=== PATIENT | male | born 1975 | race Caucasian/White ===

== ENCOUNTER 2016-06-28 23:18 | Emergency (ER) | payer OTHER ==
[~2016-06-28] VITALS: Ht 182.9 cm; Wt 123.0 kg
[~2016-06-28 23:18] MED LIST: AVAPRO300 MG PO; PREVACID30 MG PO
[2016-06-29 00:28] LABS: HEMATOCRIT 42.2 % (38.0-50.0); MCH 28.8 PG (29.0-34.0); MCHC 32.9 G/DL (30.0-36.0); MCV 87.6 FL (86-99); MEAN PLAT.VOLUME 8.4 uM^3 (9.0-12.4); PLATELET COUNT 365 K/uL (156-360); RBC DIS.WIDTH-CV 11.5 % (11.8-14.6); RBC DIS.WIDTH-SD 37.3 % (39-53); RED BLOOD COUNT 4.82 M/uL (4.00-5.50); WHITE BLOOD COUNT 10.8 K/uL (4.1-10.2)
[2016-06-29 00:36] LABS: CHLORIDE 102 mEq/L (99-109); POTASSIUM 3.8 mEq/L (3.7-5.4); SODIUM 138 mEq/L (136-147)
[2016-06-29 00:38] LABS: GLUCOSE 100 mg/dL (70-99)
[2016-06-29 00:40] LABS: ANION GAP 9 MEQ/L (2-14)
[2016-06-29 00:42] LABS: GFR ESTIMATE (CALCULATED) > 59 mL/min/
[2016-06-29 00:43] LABS: UREA NITROGEN (BUN) 13 mg/dL (9-23)
[2016-06-29 00:48] LABS: TROP-I INTERPRETATION NEGATIVE; TROPONIN-I < 0.01 ng/mL (0.0-0.30)
[2016-06-29 01:45] LABS: INFLUENZA A VIRAL ANTIGEN NEGATIVE; INFLUENZA B VIRAL ANTIGEN NEGATIVE
[2016-06-29] MEDS ORDERED: HYCODAN SYRUP480 ML PO (02:00)
[2016-06-29] MEDS ORDERED: PROAIR HFA8.5 GM IH (02:00)
[2016-06-29 02:16] VITALS: BP 123/82
== END 2016-06-29 02:21 | disposition home or self-care (01) ==
LOC: EME 23:18
PROVIDERS: Emergency Medicine
DX: J06.9 Acute upper respiratory infection, unspecified (principal); J30.9 Allergic rhinitis, unspecified; R91.8 Other nonspecific abnormal finding of lung field; I10 Essential (primary) hypertension; K21.9 Gastro-esophageal reflux disease without esophagitis
CPT/HCPCS: 71020; 80048; 84484; 85027; 87502; 93005; 94640; 99281; 99284

== ENCOUNTER → 2016-07-06 | Outpatient (CLI) | payer OTHER ==
[~2016-07-06] VITALS: Ht 182.9 cm; Wt 119.5 kg
[~2016-07-06] MED LIST changes: +HYCODAN SYRUP480 ML PO; +PROAIR HFA8.5 GM IH
[2016-07-06 10:25] LABS: INTER. NORMALIZED RATIO 1.1; PROTHROMBIN TIME 11.5 (9.2-11.2); PTT 32.6 (25-32)
[2016-07-08 10:12] LABS: Flow Clinical Information NOT PROVIDED (()); Flow Number of Markers 22 (()); Flow Spec Viability 58 % (())
== END | disposition home or self-care (01) ==
LOC: OPR 08:44 → EDSTATUS 09:00 → RAD 10:00 → OPR 07-14 09:00
PROVIDERS: Family Medicine
PROC: 0WBC3ZX Excision of Mediastinum, Percutaneous Approach, Diagnostic (ICD-10-PCS; principal; 2016-07-06)
DX: C38.1 Malignant neoplasm of anterior mediastinum (principal); R07.9 Chest pain, unspecified; R91.8 Other nonspecific abnormal finding of lung field; R11.0 Nausea
CPT/HCPCS: 71010; 71250; 77012; 85610; 85730; 88184 90; 88185 90; 88189 90; 88305; 88341 TC; 88342 TC; J2405; J3010

== ENCOUNTER → 2016-07-15 | Outpatient (CLI) | payer OTHER ==
[~2016-07-15] MED LIST changes: +ADVIL200 MG PO
== END | disposition home or self-care (01) ==
LOC: RES 12:30
DX: J98.59 Other diseases of mediastinum, not elsewhere classified (principal)
CPT/HCPCS: 94060; 94726; 94729

== ENCOUNTER 2016-07-17 10:58 | Day surgery (SDC) | payer OTHER ==
[~2016-07-17] VITALS: Ht 182.9 cm; Wt 119.0 kg
== END 2016-07-17 13:32 | disposition home or self-care (01) ==
LOC: CATH 10:58
DX: I87.8 Other specified disorders of veins (principal); C78.1 Secondary malignant neoplasm of mediastinum; I10 Essential (primary) hypertension; Z82.49 Family history of ischemic heart disease and other diseases of the circulatory system; Z83.3 Family history of diabetes mellitus
CPT/HCPCS: C1751; C1894; J0690; J1644; J2250; J3010; S0020

== ENCOUNTER 2016-07-22 10:54 | Inpatient (IN) | payer OTHER ==
[~2016-07-22] VITALS: Ht 182.9 cm; Wt 118.8 kg
[2016-07-23 09:01] VITALS: BP 137/82
[2016-07-23] MEDS ORDERED: OXAYDO5 MG PO (09:28)
[2016-07-23] MEDS ORDERED: DERMACINRX EMP1 EACH TP (09:30)
[2016-07-23] MEDS ORDERED: SENNA LAXATIVE8.6 MG PO (09:32)
[2016-07-23] MEDS ORDERED: COMPAZINE10 MG PO (09:33)
[2016-07-23] MEDS ORDERED: ZOFRAN8 MG PO ×2 (09:34→09:35)
[2016-07-23 09:39] LABS: HEMATOCRIT 34.3 % (38.0-50.0); MCH 27.2 PG (29.0-34.0); MCHC 32.1 G/DL (30.0-36.0); MCV 84.9 FL (86-99); MEAN PLAT.VOLUME 8.8 uM^3 (9.0-12.4); PLATELET COUNT 347 K/uL (156-360); RBC DIS.WIDTH-CV 12.7 % (11.8-14.6); RBC DIS.WIDTH-SD 39.4 % (39-53); RED BLOOD COUNT 4.04 M/uL (4.00-5.50); WHITE BLOOD COUNT 10.6 K/uL (4.1-10.2)
[2016-07-23 09:45] LABS: ALKALINE PHOSPHATASE 170 IU/L (3-129); ANION GAP 12 MEQ/L (2-14); CHLORIDE 103 MEQ/L (99-109); GFR ESTIMATE (CALCULATED) > 59 mL/min/; GLUCOSE 95 mg/dL (70-99); POTASSIUM 3.7 MEQ/L (3.7-5.4); SAMPLE HEMOLYSIS CHECK 0; SAMPLE ICTERIC CHECK 0; SAMPLE LIPEMIA CHECK 0; SODIUM 140 MEQ/L (136-147); TOTAL BILIRUBIN 0.9 MG/DL (0.0-1.0); UREA NITROGEN (BUN) 16 mg/dL (9-23)
[2016-07-23 12:01] VITALS: BP 129/79
[2016-07-23 16:38] VITALS: BP 133/97
[2016-07-24 00:58] VITALS: BP 131/76
[2016-07-24 04:17] VITALS: BP 132/71
[2016-07-24 07:19] LABS: HEMATOCRIT 31.8 % (38.0-50.0); MCH 27.6 PG (29.0-34.0); MCHC 32.4 G/DL (30.0-36.0); MCV 85.3 FL (86-99); MEAN PLAT.VOLUME 8.8 uM^3 (9.0-12.4); PLATELET COUNT 337 K/uL (156-360); RBC DIS.WIDTH-CV 12.8 % (11.8-14.6); RED BLOOD COUNT 3.73 M/uL (4.00-5.50); WHITE BLOOD COUNT 13.9 K/uL (4.1-10.2)
[2016-07-24 07:27] LABS: ALKALINE PHOSPHATASE 168 IU/L (3-129); ANION GAP 11 MEQ/L (2-14); CHLORIDE 103 MEQ/L (99-109); GFR ESTIMATE (CALCULATED) > 59 mL/min/; GLUCOSE 116 mg/dL (70-99); POTASSIUM 4.3 MEQ/L (3.7-5.4); SAMPLE HEMOLYSIS CHECK 0; SAMPLE ICTERIC CHECK 0; SAMPLE LIPEMIA CHECK 0; SODIUM 138 MEQ/L (136-147); TOTAL BILIRUBIN 0.8 MG/DL (0.0-1.0); UREA NITROGEN (BUN) 14 mg/dL (9-23); URIC ACID 4.2 mg/dL (3.1-9.2)
[2016-07-24 08:23] VITALS: BP 120/75
[2016-07-24 15:37] VITALS: BP 131/74
[2016-07-24 23:03] VITALS: BP 133/74
[2016-07-25 06:08] LABS: EOSINOPHIL (%) 0.2 % (0-5); HEMATOCRIT 30.9 % (38.0-50.0); IMMATURE GRANULOCYTE (%) 0.4 % (0.0-0.7); IMMATURE GRANULOCYTE COUNT 0.1 K/uL; INSTRUMENT ABS NEUTROPHIL CT 12.4 K/uL; LYMPHOCYTE COUNT 1.1 K/uL (1.0-2.8); MCH 27.3 PG (29.0-34.0); MCHC 31.7 G/DL (30.0-36.0); MCV 86.1 FL (86-99); MONOCYTE (%) 6.3 % (3-12); MONOCYTE COUNT 0.9 K/uL (0-0.8); NEUTROPHIL (%) 85.4 % (45-76); NEUTROPHIL COUNT 12.4 K/uL (1.8-6.4); PLATELET COUNT 324 K/uL (156-360); RBC DIS.WIDTH-CV 12.7 % (11.8-14.6); RBC DIS.WIDTH-SD 39.9 % (39-53); RED BLOOD COUNT 3.59 M/uL (4.00-5.50); WHITE BLOOD COUNT 14.5 K/uL (4.1-10.2)
[2016-07-25 06:29] LABS: ALKALINE PHOSPHATASE 133 IU/L (3-129); ANION GAP 9 MEQ/L (2-14); CHLORIDE 106 MEQ/L (99-109); GFR ESTIMATE (CALCULATED) > 59 mL/min/; GLUCOSE 95 mg/dL (70-99); MAGNESIUM 2.2 mg/dl (1.3-2.7); POTASSIUM 4.4 MEQ/L (3.7-5.4); SAMPLE HEMOLYSIS CHECK 0; SAMPLE ICTERIC CHECK 0; SAMPLE LIPEMIA CHECK 0; SODIUM 139 MEQ/L (136-147); TOTAL BILIRUBIN 0.7 MG/DL (0.0-1.0); UREA NITROGEN (BUN) 17 mg/dL (9-23)
[2016-07-25 06:36] VITALS: BP 133/78
[2016-07-25 15:36] VITALS: BP 128/74
[2016-07-25 22:23] VITALS: BP 143/83
[2016-07-26 06:14] LABS: EOSINOPHIL (%) 1.5 % (0-5); EOSINOPHIL COUNT 0.2 K/uL (0-0.3); IMMATURE GRANULOCYTE (%) 0.5 % (0.0-0.7); IMMATURE GRANULOCYTE COUNT 0.1 K/uL; INSTRUMENT ABS NEUTROPHIL CT 7.9 K/uL; LYMPHOCYTE COUNT 1.8 K/uL (1.0-2.8); MCH 27.1 PG (29.0-34.0); MCHC 31.9 G/DL (30.0-36.0); MCV 84.9 FL (86-99); MEAN PLAT.VOLUME 8.8 uM^3 (9.0-12.4); MONOCYTE (%) 2.3 % (3-12); MONOCYTE COUNT 0.2 K/uL (0-0.8); NEUTROPHIL (%) 77.7 % (45-76); NEUTROPHIL COUNT 7.9 K/uL (1.8-6.4); PLATELET COUNT 327 K/uL (156-360); RBC DIS.WIDTH-CV 12.8 % (11.8-14.6); RBC DIS.WIDTH-SD 39.6 % (39-53); RED BLOOD COUNT 3.77 M/uL (4.00-5.50); WHITE BLOOD COUNT 10.2 K/uL (4.1-10.2)
[2016-07-26 06:43] LABS: ANION GAP 8 MEQ/L (2-14); CHLORIDE 106 MEQ/L (99-109); GFR ESTIMATE (CALCULATED) > 59 mL/min/; GLUCOSE 95 mg/dL (70-99); MAGNESIUM 1.9 mg/dl (1.3-2.7); POTASSIUM 4.1 MEQ/L (3.7-5.4); SAMPLE HEMOLYSIS CHECK 0; SAMPLE ICTERIC CHECK 0; SAMPLE LIPEMIA CHECK 0; SODIUM 138 MEQ/L (136-147); UREA NITROGEN (BUN) 17 mg/dL (9-23)
[2016-07-26 09:26] VITALS: BP 133/76
[2016-07-26 10:04] LABS: ADD MIUA? NO; BILIRUBIN NEGATIVE; BLOOD NEGATIVE; COLOR STRAW ((YELLOW)); GLUCOSE (STRIP) 50; KETONES 20; LEUKOCYTES NEGATIVE; NITRITE NEGATIVE; PROTEIN (STRIP) NEGATIVE; UROBILINOGEN 0.2 MG/DL (0.2-1.0)
[2016-07-26 17:07] VITALS: BP 127/70
[2016-07-26 22:40] VITALS: BP 127/83
[2016-07-27 07:26] VITALS: BP 136/84
[2016-07-27 15:00] VITALS: BP 108/61
[2016-07-27 23:43] VITALS: BP 122/75
[2016-07-28 06:25] LABS: EOSINOPHIL (%) 2.2 % (0-5); EOSINOPHIL COUNT 0.2 K/uL (0-0.3); HEMATOCRIT 32.8 % (38.0-50.0); IMMATURE GRANULOCYTE (%) 0.7 % (0.0-0.7); IMMATURE GRANULOCYTE COUNT 0.1 K/uL; INSTRUMENT ABS NEUTROPHIL CT 8.5 K/uL; LYMPHOCYTE COUNT 1.4 K/uL (1.0-2.8); MCH 26.8 PG (29.0-34.0); MCV 83.7 FL (86-99); MONOCYTE (%) 0.8 % (3-12); MONOCYTE COUNT 0.1 K/uL (0-0.8); NEUTROPHIL (%) 82.9 % (45-76); NEUTROPHIL COUNT 8.5 K/uL (1.8-6.4); PLATELET COUNT 403 K/uL (156-360); RBC DIS.WIDTH-CV 13.1 % (11.8-14.6); RBC DIS.WIDTH-SD 39.7 % (39-53); RED BLOOD COUNT 3.92 M/uL (4.00-5.50); WHITE BLOOD COUNT 10.3 K/uL (4.1-10.2)
[2016-07-28 07:00] VITALS: BP 132/80
[2016-07-28 07:11] LABS: ANION GAP 11 MEQ/L (2-14); CHLORIDE 100 MEQ/L (99-109); GFR ESTIMATE (CALCULATED) > 59 mL/min/; GLUCOSE 83 mg/dL (70-99); POTASSIUM 4.2 MEQ/L (3.7-5.4); SAMPLE HEMOLYSIS CHECK 0; SAMPLE ICTERIC CHECK 0; SAMPLE LIPEMIA CHECK 0; SODIUM 136 MEQ/L (136-147); UREA NITROGEN (BUN) 16 mg/dL (9-23)
[2016-07-28 15:05] VITALS: BP 119/77
== END 2016-07-28 20:05 | disposition home or self-care (01) | DRG 847 ==
LOC: 5EAST 10:54
PROVIDERS: Hospitalist; Internal Medicine
DX: Z51.11 Encounter for antineoplastic chemotherapy (principal); C78.01 Secondary malignant neoplasm of right lung; D59.9 Acquired hemolytic anemia, unspecified; D61.9 Aplastic anemia, unspecified; C62.90 Malignant neoplasm of unspecified testis, unspecified whether descended or undescended; I10 Essential (primary) hypertension; K21.9 Gastro-esophageal reflux disease without esophagitis; G89.3 Neoplasm related pain (acute) (chronic); K59.00 Constipation, unspecified; D72.829 Elevated white blood cell count, unspecified
CPT/HCPCS: 71010; 80048; 80053; 81003; 82105 90; 83615; 83735; 84100; 84550; 84702 90; 85025; 85027; J1100; J1453; J1626; J1650; J2405; J2765; J7030; J7040; J7050; J9060; J9181; J9208; J9209

== ENCOUNTER 2016-08-17 08:22 | Inpatient (IN) | payer OTHER ==
[~2016-08-17] VITALS: Ht 182.9 cm; Wt 113.6 kg
[~2016-08-17 08:22] MED LIST changes: +COMPAZINE10 MG PO; +DERMACINRX EMP1 EACH TP; +OXAYDO5 MG PO; +SENNA LAXATIVE8.6 MG PO; +ZOFRAN8 MG PO
[2016-08-17 09:31] LABS: HEMATOCRIT 36.5 % (38.0-50.0); MCH 26.7 PG (29.0-34.0); MCHC 31.5 G/DL (30.0-36.0); MCV 84.9 FL (86-99); PLATELET COUNT 485 K/uL (156-360); RBC DIS.WIDTH-CV 16.1 % (11.8-14.6); RBC DIS.WIDTH-SD 43.8 % (39-53); WHITE BLOOD COUNT 11.1 K/uL (4.1-10.2)
[2016-08-17 09:46] LABS: CHLORIDE 104 mEq/L (99-109); POTASSIUM 4.6 mEq/L (3.7-5.4); SODIUM 139 mEq/L (136-147)
[2016-08-17 09:48] LABS: GLUCOSE 100 mg/dL (70-99)
[2016-08-17 09:50] LABS: ANION GAP 11 MEQ/L (2-14); TOTAL BILIRUBIN 0.2 mg/dL (0.0-1.0)
[2016-08-17 09:52] LABS: ALKALINE PHOSPHATASE 110 IU/L (3-129); GFR ESTIMATE (CALCULATED) > 59 mL/min/
[2016-08-17 09:53] LABS: UREA NITROGEN (BUN) 12 mg/dL (9-23)
[2016-08-17 11:27] VITALS: BP 116/75
[2016-08-17 19:21] VITALS: BP 123/79
[2016-08-17 19:30] VITALS: BP 129/83
[2016-08-18 07:21] LABS: HEMATOCRIT 36.3 % (38.0-50.0); MCH 27.4 PG (29.0-34.0); MCV 85.8 FL (86-99); MEAN PLAT.VOLUME 8.9 uM^3 (9.0-12.4); PLATELET COUNT 470 K/uL (156-360); RBC DIS.WIDTH-CV 15.8 % (11.8-14.6); RBC DIS.WIDTH-SD 43.8 % (39-53); RED BLOOD COUNT 4.23 M/uL (4.00-5.50)
[2016-08-18 07:34] LABS: WHITE BLOOD COUNT 19.9 K/uL (4.1-10.2)
[2016-08-18 07:35] VITALS: BP 122/72
[2016-08-18 07:42] LABS: ALKALINE PHOSPHATASE 110 IU/L (3-129); ANION GAP 8 MEQ/L (2-14); CHLORIDE 105 MEQ/L (99-109); GFR ESTIMATE (CALCULATED) > 59 mL/min/; GLUCOSE 107 mg/dL (70-99); LACTATE DEHYDROGENASE 246 IU/L (20-246); POTASSIUM 5.1 MEQ/L (3.7-5.4); SAMPLE HEMOLYSIS CHECK 0; SAMPLE ICTERIC CHECK 0; SAMPLE LIPEMIA CHECK 0; SODIUM 139 MEQ/L (136-147); TOTAL BILIRUBIN 0.4 MG/DL (0.0-1.0); UREA NITROGEN (BUN) 10 mg/dL (9-23)
[2016-08-18 11:14] VITALS: BP 124/74
[2016-08-18 15:40] VITALS: BP 126/74
[2016-08-18 22:49] VITALS: BP 129/73
[2016-08-19 06:40] LABS: EOSINOPHIL (%) 0 % (0-5); HEMATOCRIT 33.7 % (38.0-50.0); IMMATURE GRANULOCYTE COUNT 0.2 K/uL; INSTRUMENT ABS NEUTROPHIL CT 18.8 K/uL; LYMPHOCYTE COUNT 0.5 K/uL (1.0-2.8); MCH 26.9 PG (29.0-34.0); MCHC 31.2 G/DL (30.0-36.0); MCV 86.2 FL (86-99); MEAN PLAT.VOLUME 9.2 uM^3 (9.0-12.4); MONOCYTE (%) 4.6 % (3-12); MONOCYTE COUNT 0.9 K/uL (0-0.8); NEUTROPHIL (%) 91.7 % (45-76); NEUTROPHIL COUNT 18.8 K/uL (1.8-6.4); PLATELET COUNT 427 K/uL (156-360); RBC DIS.WIDTH-CV 16.5 % (11.8-14.6); RBC DIS.WIDTH-SD 46.9 % (39-53); RED BLOOD COUNT 3.91 M/uL (4.00-5.50); WHITE BLOOD COUNT 20.5 K/uL (4.1-10.2)
[2016-08-19 07:09] LABS: ALKALINE PHOSPHATASE 90 IU/L (3-129); ANION GAP 9 MEQ/L (2-14); CHLORIDE 106 MEQ/L (99-109); GFR ESTIMATE (CALCULATED) > 59 mL/min/; GLUCOSE 110 mg/dL (70-99); POTASSIUM 4.5 MEQ/L (3.7-5.4); SAMPLE HEMOLYSIS CHECK 0; SAMPLE ICTERIC CHECK 0; SAMPLE LIPEMIA CHECK 0; SODIUM 140 MEQ/L (136-147); UREA NITROGEN (BUN) 14 mg/dL (9-23)
[2016-08-19 07:10] LABS: TOTAL BILIRUBIN 0.3 MG/DL (0.0-1.0)
[2016-08-19 08:37] VITALS: BP 134/82
[2016-08-19 17:09] VITALS: BP 135/81
[2016-08-19 23:08] VITALS: BP 110/64
[2016-08-20 07:01] LABS: BASOPHIL COUNT 0.1 K/uL (0-0.1); EOSINOPHIL (%) 0 % (0-5); HEMATOCRIT 33.5 % (38.0-50.0); IMMATURE GRANULOCYTE (%) 0.9 % (0.0-0.7); IMMATURE GRANULOCYTE COUNT 0.1 K/uL; INSTRUMENT ABS NEUTROPHIL CT 12.6 K/uL; LYMPHOCYTE COUNT 1.1 K/uL (1.0-2.8); MCH 27.7 PG (29.0-34.0); MCHC 31.9 G/DL (30.0-36.0); MCV 86.8 FL (86-99); MEAN PLAT.VOLUME 9.3 uM^3 (9.0-12.4); MONOCYTE (%) 7.9 % (3-12); MONOCYTE COUNT 1.2 K/uL (0-0.8); NEUTROPHIL (%) 83.4 % (45-76); NEUTROPHIL COUNT 12.6 K/uL (1.8-6.4); PLATELET COUNT 435 K/uL (156-360); RBC DIS.WIDTH-CV 16.6 % (11.8-14.6); RBC DIS.WIDTH-SD 47.6 % (39-53); RED BLOOD COUNT 3.86 M/uL (4.00-5.50); WHITE BLOOD COUNT 15.1 K/uL (4.1-10.2)
[2016-08-20 07:02] VITALS: BP 135/90
[2016-08-20 07:24] LABS: ANION GAP 8 MEQ/L (2-14); CHLORIDE 104 MEQ/L (99-109); GFR ESTIMATE (CALCULATED) > 59 mL/min/; GLUCOSE 91 mg/dL (70-99); POTASSIUM 4.3 MEQ/L (3.7-5.4); SAMPLE HEMOLYSIS CHECK 0; SAMPLE ICTERIC CHECK 0; SAMPLE LIPEMIA CHECK 0; SODIUM 140 MEQ/L (136-147); UREA NITROGEN (BUN) 15 mg/dL (9-23)
[2016-08-20 15:21] VITALS: BP 139/89
[2016-08-20 23:02] VITALS: BP 116/68
[2016-08-21 05:16] LABS: BASOPHIL COUNT 0.1 K/uL (0-0.1); EOSINOPHIL (%) 0.1 % (0-5); HEMATOCRIT 34.4 % (38.0-50.0); IMMATURE GRANULOCYTE (%) 0.6 % (0.0-0.7); IMMATURE GRANULOCYTE COUNT 0.1 K/uL; INSTRUMENT ABS NEUTROPHIL CT 10.1 K/uL; LYMPHOCYTE COUNT 1.5 K/uL (1.0-2.8); MCH 28.1 PG (29.0-34.0); MCHC 33.1 G/DL (30.0-36.0); MCV 84.9 FL (86-99); MEAN PLAT.VOLUME 9.3 uM^3 (9.0-12.4); MONOCYTE (%) 5.1 % (3-12); MONOCYTE COUNT 0.6 K/uL (0-0.8); NEUTROPHIL (%) 81.8 % (45-76); NEUTROPHIL COUNT 10.1 K/uL (1.8-6.4); PLATELET COUNT 458 K/uL (156-360); RBC DIS.WIDTH-CV 16.4 % (11.8-14.6); RBC DIS.WIDTH-SD 48.4 % (39-53); RED BLOOD COUNT 4.05 M/uL (4.00-5.50); WHITE BLOOD COUNT 12.4 K/uL (4.1-10.2)
[2016-08-21 05:49] LABS: ALKALINE PHOSPHATASE 85 IU/L (3-129); ANION GAP 9 MEQ/L (2-14); CHLORIDE 100 MEQ/L (99-109); GFR ESTIMATE (CALCULATED) > 59 mL/min/; GLUCOSE 88 mg/dL (70-99); POTASSIUM 4.6 MEQ/L (3.7-5.4); SAMPLE HEMOLYSIS CHECK 0; SAMPLE ICTERIC CHECK 0; SAMPLE LIPEMIA CHECK 0; SODIUM 136 MEQ/L (136-147); TOTAL BILIRUBIN 0.5 MG/DL (0.0-1.0); UREA NITROGEN (BUN) 21 mg/dL (9-23)
[2016-08-21 07:12] VITALS: BP 133/82
[2016-08-21 15:00] VITALS: BP 140/68
[2016-08-21 22:54] VITALS: BP 122/76
[2016-08-22 07:05] VITALS: BP 125/76
[2016-08-22 07:51] LABS: EOSINOPHIL (%) 0.5 % (0-5); EOSINOPHIL COUNT 0.1 K/uL (0-0.3); HEMATOCRIT 37.1 % (38.0-50.0); IMMATURE GRANULOCYTE (%) 0.7 % (0.0-0.7); IMMATURE GRANULOCYTE COUNT 0.1 K/uL; INSTRUMENT ABS NEUTROPHIL CT 7.3 K/uL; LYMPHOCYTE COUNT 1.4 K/uL (1.0-2.8); MCH 27.1 PG (29.0-34.0); MCHC 32.6 G/DL (30.0-36.0); MEAN PLAT.VOLUME 9.2 uM^3 (9.0-12.4); MONOCYTE (%) 2.7 % (3-12); MONOCYTE COUNT 0.3 K/uL (0-0.8); NEUTROPHIL (%) 80.7 % (45-76); NEUTROPHIL COUNT 7.3 K/uL (1.8-6.4); PLATELET COUNT 533 K/uL (156-360); RBC DIS.WIDTH-CV 16.3 % (11.8-14.6); RBC DIS.WIDTH-SD 47.3 % (39-53); RED BLOOD COUNT 4.47 M/uL (4.00-5.50); WHITE BLOOD COUNT 9.1 K/uL (4.1-10.2)
[2016-08-22 08:43] LABS: ANION GAP 11 MEQ/L (2-14); CHLORIDE 101 MEQ/L (99-109); GFR ESTIMATE (CALCULATED) > 59 mL/min/; GLUCOSE 96 mg/dL (70-99); POTASSIUM 4.3 MEQ/L (3.7-5.4); SAMPLE HEMOLYSIS CHECK 0; SAMPLE ICTERIC CHECK 0; SAMPLE LIPEMIA CHECK 0; SODIUM 135 MEQ/L (136-147); UREA NITROGEN (BUN) 22 mg/dL (9-23)
== END 2016-08-22 15:58 | disposition home or self-care (01) | DRG 847 ==
LOC: 5EAST 08:22
PROVIDERS: Hospitalist; Internal Medicine; Internal Medicine Hematology & Oncology
DX: Z51.11 Encounter for antineoplastic chemotherapy (principal); C78.00 Secondary malignant neoplasm of unspecified lung; C62.91 Malignant neoplasm of right testis, unspecified whether descended or undescended; C62.92 Malignant neoplasm of left testis, unspecified whether descended or undescended; C80.1 Malignant (primary) neoplasm, unspecified; I10 Essential (primary) hypertension; K21.9 Gastro-esophageal reflux disease without esophagitis; L81.3 Cafe au lait spots; K59.00 Constipation, unspecified
CPT/HCPCS: 80048; 80053; 82105 90; 83615; 84702 90; 85025; 85027; J1100; J1453; J1626; J1650; J2060; J2405; J7030; J7040; J7050; J9060; J9181; J9208; J9209; Q0164

== ENCOUNTER 2016-09-07 08:09 | Inpatient (IN) | payer OTHER ==
[~2016-09-07] VITALS: Ht 182.9 cm; Wt 115.5 kg
[2016-09-07 08:34] VITALS: BP 124/76
[2016-09-07 10:38] LABS: ANION GAP 13 MEQ/L (2-14); CHLORIDE 102 MEQ/L (99-109); GFR ESTIMATE (CALCULATED) > 59 mL/min/; GLUCOSE 89 mg/dL (70-99); POTASSIUM 4.4 MEQ/L (3.7-5.4); SAMPLE HEMOLYSIS CHECK 0; SAMPLE ICTERIC CHECK 0; SAMPLE LIPEMIA CHECK 0; SODIUM 142 MEQ/L (136-147); UREA NITROGEN (BUN) 13 mg/dL (9-23)
[2016-09-07 10:45] LABS: HEMATOCRIT 32.4 % (38.0-50.0); MCH 28.3 PG (29.0-34.0); MCHC 32.7 G/DL (30.0-36.0); MCV 86.6 FL (86-99); NRBC (%) 0.1 /100 WBC (0-0); RBC DIS.WIDTH-CV 19.1 % (11.8-14.6); RBC DIS.WIDTH-SD 55.6 % (39-53); RED BLOOD COUNT 3.74 M/uL (4.00-5.50)
[2016-09-07 10:46] LABS: WHITE BLOOD COUNT 13.9 K/uL (4.1-10.2)
[2016-09-07 11:48] LABS: ABS NEUTROPHIL COUNT 9.8; ANISOCYTOSIS 1+; BAND NEUTROPHILS 3.5 % (0-8.0); BASOPHILS 0.9 %; EOSINOPHIL ABS CT 0.2; EOSINOPHILS 1.7 % (0-5.0); INSTRUMENT ABS NEUTROPHIL CT 9.2 K/uL; LYMPHOCYTES 16.5 % (15.0-45.0); MEAN PLAT.VOLUME 9.5 uM^3 (9.0-12.4); MYELOCYTES 6.1 %; PLAT.SUFFICIENCY ADEQUATE; POLYCHROMASIA 1+
[2016-09-07 11:51] LABS: PLATELET COUNT 156 K/uL (156-360)
[2016-09-07 19:15] VITALS: BP 130/79
[2016-09-07 23:20] VITALS: BP 122/70
[2016-09-08 07:30] LABS: HEMATOCRIT 28.7 % (38.0-50.0); MCH 28.7 PG (29.0-34.0); MCHC 33.4 G/DL (30.0-36.0); MCV 85.9 FL (86-99); MEAN PLAT.VOLUME 9.4 uM^3 (9.0-12.4); PLATELET COUNT 169 K/uL (156-360); RBC DIS.WIDTH-CV 18.9 % (11.8-14.6); RBC DIS.WIDTH-SD 55.2 % (39-53); RED BLOOD COUNT 3.34 M/uL (4.00-5.50)
[2016-09-08 07:31] LABS: WHITE BLOOD COUNT 23.1 K/uL (4.1-10.2)
[2016-09-08 08:07] LABS: ALKALINE PHOSPHATASE 74 IU/L (3-129); ANION GAP 10 MEQ/L (2-14); CHLORIDE 107 MEQ/L (99-109); GFR ESTIMATE (CALCULATED) > 59 mL/min/; LACTATE DEHYDROGENASE 164 IU/L (20-246); POTASSIUM 4.1 MEQ/L (3.7-5.4); SAMPLE HEMOLYSIS CHECK 0; SAMPLE ICTERIC CHECK 0; SAMPLE LIPEMIA CHECK 0; SODIUM 141 MEQ/L (136-147); TOTAL BILIRUBIN 0.3 MG/DL (0.0-1.0); UREA NITROGEN (BUN) 10 mg/dL (9-23)
[2016-09-08 08:09] LABS: GLUCOSE 112 mg/dL (70-99)
[2016-09-08 11:25] VITALS: BP 129/73
[2016-09-08 23:30] VITALS: BP 130/71
[2016-09-09 06:15] LABS: HEMATOCRIT 27.8 % (38.0-50.0); MCH 28.1 PG (29.0-34.0); MCHC 32.7 G/DL (30.0-36.0); MCV 85.8 FL (86-99); MEAN PLAT.VOLUME 9.5 uM^3 (9.0-12.4); NRBC (%) 0.1 /100 WBC (0-0); PLATELET COUNT 195 K/uL (156-360); RBC DIS.WIDTH-CV 19.1 % (11.8-14.6); RBC DIS.WIDTH-SD 55.8 % (39-53); RED BLOOD COUNT 3.24 M/uL (4.00-5.50); WHITE BLOOD COUNT 25.4 K/uL (4.1-10.2)
[2016-09-09 07:05] LABS: ANION GAP 8 MEQ/L (2-14); CHLORIDE 106 MEQ/L (99-109); GFR ESTIMATE (CALCULATED) > 59 mL/min/; GLUCOSE 106 mg/dL (70-99); POTASSIUM 4.2 MEQ/L (3.7-5.4); SAMPLE HEMOLYSIS CHECK 0; SAMPLE ICTERIC CHECK 0; SAMPLE LIPEMIA CHECK 0; SODIUM 141 MEQ/L (136-147); UREA NITROGEN (BUN) 13 mg/dL (9-23)
[2016-09-09 08:00] VITALS: BP 125/77
[2016-09-09 16:18] VITALS: BP 122/65
[2016-09-09 21:56] VITALS: BP 124/70
[2016-09-10 01:18] VITALS: BP 120/65
[2016-09-10 06:31] LABS: HEMATOCRIT 28.8 % (38.0-50.0); MCH 28.1 PG (29.0-34.0); MCHC 32.6 G/DL (30.0-36.0); MCV 86.2 FL (86-99); PLATELET COUNT 219 K/uL (156-360); RBC DIS.WIDTH-CV 19.6 % (11.8-14.6); RBC DIS.WIDTH-SD 55.8 % (39-53); RED BLOOD COUNT 3.34 M/uL (4.00-5.50)
[2016-09-10 07:32] VITALS: BP 126/81
[2016-09-10 15:45] VITALS: BP 123/78
[2016-09-10 19:02] VITALS: BP 132/78
[2016-09-11 00:05] VITALS: BP 114/69
[2016-09-11 07:16] VITALS: BP 124/85
[2016-09-11 15:12] VITALS: BP 125/75
[2016-09-11 22:47] VITALS: BP 113/73
[2016-09-12 07:34] LABS: HEMATOCRIT 33.8 % (38.0-50.0); MCH 27.6 PG (29.0-34.0); MCHC 33.4 G/DL (30.0-36.0); MCV 82.6 FL (86-99); MEAN PLAT.VOLUME 8.5 uM^3 (9.0-12.4); PLATELET COUNT 305 K/uL (156-360); RBC DIS.WIDTH-CV 19.8 % (11.8-14.6); RBC DIS.WIDTH-SD 56.9 % (39-53); RED BLOOD COUNT 4.09 M/uL (4.00-5.50)
[2016-09-12 08:00] VITALS: BP 120/74
[2016-09-12 08:00] LABS: ANION GAP 11 MEQ/L (2-14); CHLORIDE 101 MEQ/L (99-109); GFR ESTIMATE (CALCULATED) > 59 mL/min/; GLUCOSE 99 mg/dL (70-99); POTASSIUM 3.7 MEQ/L (3.7-5.4); SAMPLE HEMOLYSIS CHECK 0; SAMPLE ICTERIC CHECK 0; SAMPLE LIPEMIA CHECK 0; SODIUM 136 MEQ/L (136-147); UREA NITROGEN (BUN) 18 mg/dL (9-23)
== END 2016-09-12 15:00 | disposition home or self-care (01) | DRG 723 ==
LOC: 5EAST 08:09
PROVIDERS: Hospitalist; Internal Medicine Hematology & Oncology
DX: C62.92 Malignant neoplasm of left testis, unspecified whether descended or undescended (principal); C62.91 Malignant neoplasm of right testis, unspecified whether descended or undescended; C78.00 Secondary malignant neoplasm of unspecified lung; C79.89 Secondary malignant neoplasm of other specified sites; D72.829 Elevated white blood cell count, unspecified; K21.9 Gastro-esophageal reflux disease without esophagitis; I10 Essential (primary) hypertension; Z85.47 Personal history of malignant neoplasm of testis; Z51.11 Encounter for antineoplastic chemotherapy
CPT/HCPCS: 80048; 80076; 82105 90; 83615; 84702 90; 85025; 85027; J1100; J1453; J1644; J1650; J2405; J2997; J7030; J7040; J7050; J9060; J9181; J9208; J9209; Q0164

== ENCOUNTER 2016-09-15 21:12 | Emergency (ER) | payer OTHER ==
[~2016-09-15] VITALS: Ht 182.9 cm; Wt 109.0 kg
[2016-09-15 22:04] LABS: HEMATOCRIT 29.1 % (38.0-50.0); MCH 27.5 PG (29.0-34.0); MCHC 33.3 G/DL (30.0-36.0); MCV 82.4 FL (86-99); RBC DIS.WIDTH-CV 19.9 % (11.8-14.6); RBC DIS.WIDTH-SD 58.3 % (39-53); RED BLOOD COUNT 3.53 M/uL (4.00-5.50); WHITE BLOOD COUNT 19.2 K/uL (4.1-10.2)
[2016-09-15 22:05] LABS: CHLORIDE 100 mEq/L (99-109); POTASSIUM 3.9 mEq/L (3.7-5.4); SODIUM 136 mEq/L (136-147)
[2016-09-15 22:07] LABS: GLUCOSE 111 mg/dL (70-99)
[2016-09-15 22:09] LABS: ANION GAP 11 MEQ/L (2-14)
[2016-09-15 22:11] LABS: GFR ESTIMATE (CALCULATED) > 59 mL/min/
[2016-09-15 22:12] LABS: UREA NITROGEN (BUN) 20 mg/dL (9-23)
[2016-09-15 22:14] LABS: TROP-I INTERPRETATION NEGATIVE; TROPONIN-I < 0.01 ng/mL (0.0-0.30)
[2016-09-16 00:09] LABS: HEMATOLOGY COMMENT 1 SMEAR COMPATIBLE; MEAN PLAT.VOLUME 8.9 uM^3 (9.0-12.4); PLAT.SUFFICIENCY ADEQUATE
[2016-09-16 00:10] LABS: PLATELET COUNT 160 K/uL (156-360)
[2016-09-16 00:13] LABS: TROP-I INTERPRETATION NEGATIVE; TROPONIN-I < 0.01 ng/mL (0.0-0.30)
[2016-09-16] MEDS ORDERED: DILAUDID2 MG PO (00:19)
[2016-09-16 01:25] VITALS: BP 128/89
== END 2016-09-16 01:26 | disposition home or self-care (01) ==
LOC: EME 21:12
PROVIDERS: Emergency Medicine
DX: G89.3 Neoplasm related pain (acute) (chronic) (principal); C78.00 Secondary malignant neoplasm of unspecified lung; C62.90 Malignant neoplasm of unspecified testis, unspecified whether descended or undescended; D64.9 Anemia, unspecified; I10 Essential (primary) hypertension
CPT/HCPCS: 71020; 71275; 80048; 84484; 85027; 93005; 99281; 99285; J7030

== ENCOUNTER 2016-09-28 08:10 | Inpatient (IN) | payer OTHER ==
[~2016-09-28] VITALS: Ht 182.9 cm; Wt 112.5 kg
[~2016-09-28 08:10] MED LIST changes: +DILAUDID2 MG PO
[2016-09-28] MEDS ORDERED: HYDROMORPHONE HC2 MG PO (10:03)
[2016-09-28 10:14] LABS: HEMATOCRIT 27.3 % (38.0-50.0); MCH 29.3 PG (29.0-34.0); MCHC 32.6 G/DL (30.0-36.0); NRBC (%) 0.5 /100 WBC (0-0); RBC DIS.WIDTH-CV 24.2 % (11.8-14.6); RBC DIS.WIDTH-SD 72.6 % (39-53); RED BLOOD COUNT 3.04 M/uL (4.00-5.50); WHITE BLOOD COUNT 12.1 K/uL (4.1-10.2)
[2016-09-28 10:16] LABS: MCV 89.8 FL (86-99)
[2016-09-28 10:33] LABS: ALKALINE PHOSPHATASE 88 IU/L (3-129); ANION GAP 7 MEQ/L (2-14); CHLORIDE 106 MEQ/L (99-109); GFR ESTIMATE (CALCULATED) > 59 mL/min/; GLUCOSE 86 mg/dL (70-99); LACTATE DEHYDROGENASE 175 IU/L (20-246); POTASSIUM 4.5 MEQ/L (3.7-5.4); SAMPLE HEMOLYSIS CHECK 0; SAMPLE ICTERIC CHECK 0; SAMPLE LIPEMIA CHECK 0; SODIUM 142 MEQ/L (136-147); TOTAL BILIRUBIN 0.2 MG/DL (0.0-1.0); UREA NITROGEN (BUN) 18 mg/dL (9-23)
[2016-09-28 11:15] LABS: ABS NEUTROPHIL COUNT 9.9; ANISOCYTOSIS 1+; ATYPICAL LYMPHOCYTE 2.7 %; BAND NEUTROPHILS 1.8 % (0-8.0); EOSINOPHIL ABS CT 0; INSTRUMENT ABS NEUTROPHIL CT 8.7 K/uL; LYMPHOCYTES 13.7 % (15.0-45.0); MACROCYTES 1+; MEAN PLAT.VOLUME 9.5 uM^3 (9.0-12.4); MICROCYTOSIS 1+; PLAT.SUFFICIENCY DECREASED; PLATELET COUNT 101 K/uL (156-360); POIKILOCYTOSIS 1+
[2016-09-28 22:55] VITALS: BP 132/65
[2016-09-29 08:00] VITALS: BP 111/65
[2016-09-29 15:31] VITALS: BP 111/70
[2016-09-29 23:03] VITALS: BP 128/61
[2016-09-30 08:16] VITALS: BP 122/69
[2016-09-30 09:52] LABS: EOSINOPHIL (%) 0 % (0-5); HEMATOCRIT 24.3 % (38.0-50.0); IMMATURE GRANULOCYTE (%) 1.4 % (0.0-0.7); IMMATURE GRANULOCYTE COUNT 0.2 K/uL; INSTRUMENT ABS NEUTROPHIL CT 8.5 K/uL; LYMPHOCYTE COUNT 0.9 K/uL (1.0-2.8); MCH 30.2 PG (29.0-34.0); MCHC 33.3 G/DL (30.0-36.0); MCV 90.7 FL (86-99); MEAN PLAT.VOLUME 9.4 uM^3 (9.0-12.4); MONOCYTE (%) 8.4 % (3-12); MONOCYTE COUNT 0.9 K/uL (0-0.8); NEUTROPHIL (%) 81.6 % (45-76); NEUTROPHIL COUNT 8.5 K/uL (1.8-6.4); PLATELET COUNT 122 K/uL (156-360); RBC DIS.WIDTH-CV 25.3 % (11.8-14.6); RBC DIS.WIDTH-SD 76.6 % (39-53); RED BLOOD COUNT 2.68 M/uL (4.00-5.50); WHITE BLOOD COUNT 10.4 K/uL (4.1-10.2)
[2016-09-30 10:20] LABS: ANION GAP 10 MEQ/L (2-14); CHLORIDE 105 MEQ/L (99-109); GFR ESTIMATE (CALCULATED) > 59 mL/min/; POTASSIUM 3.6 MEQ/L (3.7-5.4); SAMPLE HEMOLYSIS CHECK 0; SAMPLE ICTERIC CHECK 0; SAMPLE LIPEMIA CHECK 0; SODIUM 141 MEQ/L (136-147); UREA NITROGEN (BUN) 11 mg/dL (9-23)
[2016-09-30 10:22] LABS: GLUCOSE 118 mg/dL (70-99)
[2016-09-30 17:49] VITALS: BP 139/84
[2016-09-30 19:48] VITALS: BP 138/80
[2016-10-01 00:05] VITALS: BP 132/75
[2016-10-01 06:41] LABS: HEMATOCRIT 25.1 % (38.0-50.0); MCH 29.3 PG (29.0-34.0); MCHC 33.1 G/DL (30.0-36.0); MCV 88.7 FL (86-99); MEAN PLAT.VOLUME 9.1 uM^3 (9.0-12.4); NRBC (%) 0.3 /100 WBC (0-0); PLATELET COUNT 143 K/uL (156-360); RBC DIS.WIDTH-SD 76.7 % (39-53); RED BLOOD COUNT 2.83 M/uL (4.00-5.50); WHITE BLOOD COUNT 7.9 K/uL (4.1-10.2)
[2016-10-01 07:19] LABS: ALKALINE PHOSPHATASE 59 IU/L (3-129); ANION GAP 9 MEQ/L (2-14); CHLORIDE 103 MEQ/L (99-109); GFR ESTIMATE (CALCULATED) > 59 mL/min/; POTASSIUM 3.9 MEQ/L (3.7-5.4); SAMPLE HEMOLYSIS CHECK 0; SAMPLE ICTERIC CHECK 0; SAMPLE LIPEMIA CHECK 0; SODIUM 138 MEQ/L (136-147); UREA NITROGEN (BUN) 12 mg/dL (9-23)
[2016-10-01 07:23] LABS: GLUCOSE 76 mg/dL (70-99); TOTAL BILIRUBIN 0.4 MG/DL (0.0-1.0)
[2016-10-01 07:47] VITALS: BP 130/78
[2016-10-01 16:08] VITALS: BP 128/79
[2016-10-02 00:46] VITALS: BP 130/84
[2016-10-02 08:09] VITALS: BP 153/88
[2016-10-02 17:16] VITALS: BP 148/76
[2016-10-02 23:20] VITALS: BP 139/80
[2016-10-03 02:27] VITALS: BP 90/52
[2016-10-03 04:24] LABS: HCG Total (Tumor Marker)+ <2 mIU/mL (<5)
[2016-10-03 07:17] VITALS: BP 151/81
[2016-10-03 09:24] LABS: EOSINOPHIL (%) 0.2 % (0-5); HEMATOCRIT 25.4 % (38.0-50.0); IMMATURE GRANULOCYTE (%) 0.7 % (0.0-0.7); INSTRUMENT ABS NEUTROPHIL CT 4.4 K/uL; LYMPHOCYTE COUNT 1.1 K/uL (1.0-2.8); MCH 29.8 PG (29.0-34.0); MCHC 34.3 G/DL (30.0-36.0); MEAN PLAT.VOLUME 8.9 uM^3 (9.0-12.4); MONOCYTE (%) 2.7 % (3-12); MONOCYTE COUNT 0.2 K/uL (0-0.8); NEUTROPHIL (%) 77.3 % (45-76); NEUTROPHIL COUNT 4.4 K/uL (1.8-6.4); PLATELET COUNT 147 K/uL (156-360); RBC DIS.WIDTH-CV 24.4 % (11.8-14.6); RBC DIS.WIDTH-SD 75.3 % (39-53); RED BLOOD COUNT 2.92 M/uL (4.00-5.50); WHITE BLOOD COUNT 5.6 K/uL (4.1-10.2)
[2016-10-03 09:51] LABS: ANION GAP 11 MEQ/L (2-14); CHLORIDE 102 MEQ/L (99-109); GFR ESTIMATE (CALCULATED) > 59 mL/min/; POTASSIUM 3.4 MEQ/L (3.7-5.4); SAMPLE HEMOLYSIS CHECK 0; SAMPLE ICTERIC CHECK 0; SAMPLE LIPEMIA CHECK 0; SODIUM 137 MEQ/L (136-147); UREA NITROGEN (BUN) 16 mg/dL (9-23)
[2016-10-03 09:56] LABS: GLUCOSE 98 mg/dL (70-99)
[2016-10-03 11:57] VITALS: BP 125/80
== END 2016-10-03 14:26 | disposition home or self-care (01) | DRG 723 ==
LOC: 5EAST 08:10
PROVIDERS: Internal Medicine; Internal Medicine Hematology & Oncology
DX: C62.90 Malignant neoplasm of unspecified testis, unspecified whether descended or undescended (principal); C78.00 Secondary malignant neoplasm of unspecified lung; D64.9 Anemia, unspecified; I10 Essential (primary) hypertension; K21.9 Gastro-esophageal reflux disease without esophagitis; F41.9 Anxiety disorder, unspecified; E66.9 Obesity, unspecified; Z92.21 Personal history of antineoplastic chemotherapy; Z85.47 Personal history of malignant neoplasm of testis
CPT/HCPCS: 80048; 80053; 82105 90; 83605; 83615; 84702 90; 85025; 85027; J0780; J1100; J1453; J1650; J2405; J7030; J7040; J7050; J9060; J9181; J9208; J9209

== ENCOUNTER → 2016-12-25 | Outpatient (CLI) | payer OTHER ==
[~2016-12-25] MED LIST changes: +HYDROMORPHONE HC2 MG PO
== END | disposition home or self-care (01) ==
LOC: AMB 13:24
DX: Z45.2 Encounter for adjustment and management of vascular access device (principal); I87.8 Other specified disorders of veins; Z92.21 Personal history of antineoplastic chemotherapy

== ENCOUNTER 2017-02-27 03:52 | Emergency (ER) | payer OTHER ==
[~2017-02-27] VITALS: Ht 182.9 cm; Wt 124.0 kg
[2017-02-27 04:43] LABS: HEMATOCRIT 43.7 % (38.0-50.0); MCH 28.8 PG (29.0-34.0); MCHC 34.1 G/DL (30.0-36.0); MCV 84.5 FL (86-99); MEAN PLAT.VOLUME 8.5 uM^3 (9.0-12.4); PLATELET COUNT 176 K/uL (156-360); RBC DIS.WIDTH-CV 14.8 % (11.8-14.6); RBC DIS.WIDTH-SD 45.4 % (39-53); RED BLOOD COUNT 5.17 M/uL (4.00-5.50); WHITE BLOOD COUNT 8.7 K/uL (4.1-10.2)
[2017-02-27 04:54] LABS: CHLORIDE 101 mEq/L (99-109); POTASSIUM 4.1 mEq/L (3.7-5.4); SODIUM 137 mEq/L (136-147)
[2017-02-27 04:56] LABS: GLUCOSE 123 mg/dL (70-99)
[2017-02-27 04:57] LABS: ANION GAP 12 MEQ/L (2-14)
[2017-02-27 04:58] LABS: TOTAL BILIRUBIN 0.3 mg/dL (0.0-1.0)
[2017-02-27 05:00] LABS: ALKALINE PHOSPHATASE 92 IU/L (3-129); GFR ESTIMATE (CALCULATED) > 59 mL/min/
[2017-02-27 05:01] LABS: UREA NITROGEN (BUN) 19 mg/dL (9-23)
[2017-02-27 05:03] LABS: LIPASE 15 U/L (1.0-51.0)
[2017-02-27] MEDS ORDERED: PROTONIX40 MG PO (06:01)
[2017-02-27 06:17] LABS: ADD MIUA? YES; BILIRUBIN NEGATIVE; BLOOD NEGATIVE; COLOR YELLOW ((YELLOW)); GLUCOSE (STRIP) NEGATIVE; KETONES NEGATIVE; LEUKOCYTES NEGATIVE; NITRITE NEGATIVE; PROTEIN (STRIP) NEGATIVE; SPECIFIC GRAVITY 1.018 (1.000-1.030); UROBILINOGEN 0.2 MG/DL (0.2-1.0)
[2017-02-27 06:32] VITALS: BP 135/93
[2017-02-27 06:50] LABS: BACTERIA RARE /HPF; EPITHELIAL CELLS RARE /HPF; MUCUS TRACE /LPF; RED BLOOD CELLS 0-5 /HPF (0-5); UCUL ADDED? NO; WHITE BLOOD CELLS 0-5 /HPF (0-5)
== END 2017-02-27 06:35 | disposition home or self-care (01) ==
LOC: EME 03:52
DX: R10.13 Epigastric pain (principal); K76.0 Fatty (change of) liver, not elsewhere classified; Z85.47 Personal history of malignant neoplasm of testis; Z87.442 Personal history of urinary calculi; Z92.21 Personal history of antineoplastic chemotherapy
CPT/HCPCS: 74177; 80053; 81003; 83690; 85027; 99281; 99285; J7030

== ENCOUNTER 2017-06-14 21:28 | Inpatient (IN) | payer OTHER ==
[~2017-06-14] VITALS: Ht 182.9 cm; Wt 119.2 kg
[~2017-06-14 21:28] MED LIST changes: -HYDROCODON-ACE1 EAC7 PO
[2017-06-15] VITALS (10 sets, daily range): BP systolic 117–146; BP diastolic 83–105
[2017-06-15 07:44] LABS: HEMOGLOBIN 16.5 G/DL (12.5-16.6); MCH 31.3 PG (29.0-34.0); MCHC 35.1 G/DL (30.0-36.0); MCV 89.2 FL (86-99); PLATELET COUNT 161 K/uL (156-360); RBC DIS.WIDTH-CV 12.3 % (11.8-14.6); RBC DIS.WIDTH-SD 40.3 % (39-53); RED BLOOD COUNT 5.27 M/uL (4.00-5.50); WHITE BLOOD COUNT 22.1 K/uL (4.1-10.2)
[2017-06-15 08:09] LABS: CHLORIDE 96 MEQ/L (99-109); CREATININE 0.8 MG/DL (0.6-1.3); GFR ESTIMATE (CALCULATED) > 59 mL/min/ (58.99-99999); GLUCOSE 138 mg/dL (70-99); POTASSIUM 4.7 MEQ/L (3.7-5.4); SODIUM 133 MEQ/L (136-147); UREA NITROGEN (BUN) 31 mg/dL (9-23)
[2017-06-16] VITALS (17 sets, daily range): BP systolic 130–169; BP diastolic 81–103
[2017-06-16 09:20] LABS: HEMATOCRIT 43.3 % (38.0-50.0); HEMOGLOBIN 15.1 G/DL (12.5-16.6); MCH 31.6 PG (29.0-34.0); MCHC 34.9 G/DL (30.0-36.0); MCV 90.6 FL (86-99); PLATELET COUNT 129 K/uL (156-360); RBC DIS.WIDTH-CV 12.5 % (11.8-14.6); RBC DIS.WIDTH-SD 41.6 % (39-53); RED BLOOD COUNT 4.78 M/uL (4.00-5.50); WHITE BLOOD COUNT 25.4 K/uL (4.1-10.2)
[2017-06-16 10:00] LABS: CHLORIDE 95 MEQ/L (99-109); CREATININE 0.8 MG/DL (0.6-1.3); GFR ESTIMATE (CALCULATED) > 59 mL/min/ (58.99-99999); POTASSIUM 4.7 MEQ/L (3.7-5.4); SODIUM 131 MEQ/L (136-147); UREA NITROGEN (BUN) 31 mg/dL (9-23)
[2017-06-16 10:02] LABS: GLUCOSE 209 mg/dL (70-99)
[2017-06-17 04:21] VITALS: BP 125/79
[2017-06-17 07:38] VITALS: BP 141/88
[2017-06-17] MEDS ORDERED: HYDROCODON-ACE1 EAC7 PO (09:03)
== END 2017-06-17 11:52 | disposition home or self-care (01) | DRG 25 ==
LOC: ENRESERV 21:28 → 2SOUTH 06-15 06:40 → 4WEST 06-15 06:40 → 2SOUTH 06-15 09:51 → ENRESERV 06-15 13:23 → 2SOUTH 06-15 15:18 → ENRESERV 06-15 16:09 → 4WEST 06-15 16:24 → ENRESERV 06-16 10:31 → 3EAST 06-16 14:47
PROVIDERS: Neurological Surgery; Physician Assistant
PROC: 00B00ZX Excision of Brain, Open Approach, Diagnostic (ICD-10-PCS; principal; 2017-06-15)
DX: C79.31 Secondary malignant neoplasm of brain (principal); I61.9 Nontraumatic intracerebral hemorrhage, unspecified; G93.6 Cerebral edema; Z85.47 Personal history of malignant neoplasm of testis; H53.40 Unspecified visual field defects; I10 Essential (primary) hypertension; K21.9 Gastro-esophageal reflux disease without esophagitis; K44.9 Diaphragmatic hernia without obstruction or gangrene; G43.909 Migraine, unspecified, not intractable, without status migrainosus; F17.200 Nicotine dependence, unspecified, uncomplicated
CPT/HCPCS: 70450; 77021; 80048; 85027; 86850; 86900; 86901; 87641; 88307; 88341 TC; 88342 TC; 94799; C1713; J0360; J0690; J1100; J1170; J2405; J2710; J3010; J3480

== ENCOUNTER → 2017-06-14 | Outpatient (CLI) | payer OTHER ==
[~2017-06-14] MED LIST changes: +AVAPRO150 MG PO; +DECADRON4 MG PO; +HYDROCODON-ACE1 EAC7 PO; +PROTONIX40 MG PO
== END | disposition home or self-care (01) ==
LOC: EKG 12:51
DX: Z01.810 Encounter for preprocedural cardiovascular examination (principal); I10 Essential (primary) hypertension; I07.1 Rheumatic tricuspid insufficiency
CPT/HCPCS: 93306

== ENCOUNTER 2017-06-25 23:04 | Inpatient (IN) | payer OTHER ==
[~2017-06-25] VITALS: Ht 182.9 cm; Wt 110.4 kg
[~2017-06-25 23:04] MED LIST changes: +HYDROCODON-ACE1 EAC7 PO
[2017-06-26] VITALS (21 sets, daily range): BP systolic 121–153; BP diastolic 79–102
[2017-06-26 00:28] LABS: HEMATOCRIT 40.1 % (38.0-50.0); HEMOGLOBIN 14.4 G/DL (12.5-16.6); MCH 31.6 PG (29.0-34.0); MCHC 35.9 G/DL (30.0-36.0); MCV 88.1 FL (86-99); NRBC (%) 0.1 /100 WBC (0-0); PLATELET COUNT 138 K/uL (156-360); RBC DIS.WIDTH-CV 12.1 % (11.8-14.6); RBC DIS.WIDTH-SD 39.1 % (39-53); RED BLOOD COUNT 4.55 M/uL (4.00-5.50); WHITE BLOOD COUNT 16.6 K/uL (4.1-10.2)
[2017-06-26 00:38] LABS: ALBUMIN 3.9 g/dL (3.2-4.8); CHLORIDE 98 mEq/L (99-109); D-DIMER ELISA < 150.00 ng/mLDDU (<230); POTASSIUM 4.4 mEq/L (3.7-5.4); PTT 21.1 SEC (25-37); SODIUM 133 mEq/L (136-147)
[2017-06-26 00:40] LABS: GLUCOSE 207 mg/dL (70-99); TOTAL PROTEIN 6.2 g/dL (6.4-8.3)
[2017-06-26 00:42] LABS: TOTAL BILIRUBIN 0.7 mg/dL (0.0-1.0)
[2017-06-26 00:44] LABS: ALKALINE PHOSPHATASE 77 IU/L (3-129); CREATININE 0.8 mg/dL (0.6-1.3); GFR ESTIMATE (CALCULATED) > 59 mL/min/ (58.99-99999)
[2017-06-26 00:45] LABS: UREA NITROGEN (BUN) 30 mg/dL (9-23)
[2017-06-26 00:46] LABS: AST (GOT) 12 IU/L (2-34)
[2017-06-26 00:47] LABS: ALT (GPT) 55 IU/L (3-49); LIPASE 29 U/L (1.0-51.0)
[2017-06-26 01:13] LABS: APPEARANCE CLEAR ((CLEAR)); BILIRUBIN NEGATIVE; BLOOD NEGATIVE; COLOR YELLOW ((YELLOW)); GLUCOSE (STRIP) >=500; KETONES 5; LEUKOCYTES NEGATIVE; NITRITE NEGATIVE; PROTEIN (STRIP) 100; SPECIFIC GRAVITY 1.031 (1.000-1.030); UROBILINOGEN 0.2 MG/DL (0.2-1.0)
[2017-06-26 01:16] LABS: BACTERIA NONE SEEN /HPF; EPITHELIAL CELLS RARE /HPF; MUCUS TRACE /LPF; RED BLOOD CELLS 0-5 /HPF (0-5); UCUL ADDED? NO; WHITE BLOOD CELLS 0-5 /HPF (0-5)
[2017-06-26] MEDS ORDERED: AUGMENTIN875 MG PO (01:48)
[2017-06-26 03:05] LABS: CREATINE KINASE 48 IU/L (1-294)
[2017-06-27] VITALS (23 sets, daily range): BP systolic 113–153; BP diastolic 80–107
[2017-06-27 05:32] LABS: HEMATOCRIT 35.4 % (38.0-50.0); HEMOGLOBIN 12.3 G/DL (12.5-16.6); MCH 31.1 PG (29.0-34.0); MCHC 34.7 G/DL (30.0-36.0); MCV 89.4 FL (86-99); PLATELET COUNT 108 K/uL (156-360); RBC DIS.WIDTH-CV 12.2 % (11.8-14.6); RBC DIS.WIDTH-SD 39.9 % (39-53); RED BLOOD COUNT 3.96 M/uL (4.00-5.50); WHITE BLOOD COUNT 10.9 K/uL (4.1-10.2)
[2017-06-27 05:58] LABS: CHLORIDE 92 MEQ/L (99-109); CREATININE 0.6 MG/DL (0.6-1.3); GFR ESTIMATE (CALCULATED) > 59 mL/min/ (58.99-99999); GLUCOSE 187 mg/dL (70-99); POTASSIUM 4.2 MEQ/L (3.7-5.4); SODIUM 132 MEQ/L (136-147); UREA NITROGEN (BUN) 20 mg/dL (9-23)
[2017-06-27 13:18] LABS: CHLORIDE 92 MEQ/L (99-109); CREATININE 0.6 MG/DL (0.6-1.3); GFR ESTIMATE (CALCULATED) > 59 mL/min/ (58.99-99999); GLUCOSE 189 mg/dL (70-99); SODIUM 129 MEQ/L (136-147); UREA NITROGEN (BUN) 20 mg/dL (9-23)
[2017-06-27 22:42] LABS: CHLORIDE 94 MEQ/L (99-109); CREATININE 0.9 MG/DL (0.6-1.3); GFR ESTIMATE (CALCULATED) > 59 mL/min/ (58.99-99999); GLUCOSE 252 mg/dL (70-99); SODIUM 130 MEQ/L (136-147); UREA NITROGEN (BUN) 25 mg/dL (9-23)
[2017-06-28] VITALS: BP 129/72
[2017-06-28 01:10] VITALS: BP 137/90
[2017-06-28 05:01] VITALS: BP 116/82
[2017-06-28 07:28] VITALS: BP 134/86
[2017-06-28 09:05] LABS: BASOPHIL (%) 0.1 % (0-1); EOSINOPHIL (%) 0 % (0-5); HEMATOCRIT 34.6 % (38.0-50.0); HEMOGLOBIN 12.2 G/DL (12.5-16.6); IMMATURE GRANULOCYTE (%) 1.6 % (0.0-0.7); LYMPHOCYTE (%) 3.3 % (15-42); LYMPHOCYTE COUNT 0.4 K/uL (1.0-2.8); MCH 31.3 PG (29.0-34.0); MCHC 35.3 G/DL (30.0-36.0); MCV 88.7 FL (86-99); MONOCYTE (%) 2.6 % (3-12); MONOCYTE COUNT 0.3 K/uL (0-0.8); NEUTROPHIL (%) 92.4 % (45-76); NEUTROPHIL COUNT 11.2 K/uL (1.8-6.4); PLATELET COUNT 121 K/uL (156-360); RBC DIS.WIDTH-CV 12.3 % (11.8-14.6); RBC DIS.WIDTH-SD 39.8 % (39-53); WHITE BLOOD COUNT 12.1 K/uL (4.1-10.2)
[2017-06-28 09:08] LABS: CHLORIDE 97 MEQ/L (99-109); POTASSIUM 3.8 MEQ/L (3.7-5.4); SODIUM 136 MEQ/L (136-147)
[2017-06-28 09:14] LABS: CREATININE 0.8 MG/DL (0.6-1.3); GFR ESTIMATE (CALCULATED) > 59 mL/min/ (58.99-99999); GLUCOSE 222 mg/dL (70-99); UREA NITROGEN (BUN) 27 mg/dL (9-23)
[2017-06-28 12:28] VITALS: BP 131/83
[2017-06-28] MEDS ORDERED: DECADRON4 M1 PO (12:28)
[2017-06-28] MEDS ORDERED: DECADRON6 MG PO (12:28)
[2017-06-28 15:35] LABS: C DIFF TOXIN NEGATIVE (NEGATIVE)
[2017-06-28 16:03] VITALS: BP 127/80
== END 2017-06-28 18:51 | disposition home or self-care (01) | DRG 919 ==
LOC: EME 23:04 → 4EAST 06-26 03:00 → EDOF 06-26 03:00 → 4WEST 06-26 03:00 → ENRESERV 06-26 03:01 → 4WEST 06-26 03:55 → ENRESERV 06-28 00:07 → 4EAST 06-28 01:09
PROVIDERS: Emergency Medicine; Internal Medicine; Internal Medicine Critical Care Medicine; Obstetrics & Gynecology
DX: G97.51 Postprocedural hemorrhage of a nervous system organ or structure following a nervous system procedure (principal); I61.8 Other nontraumatic intracerebral hemorrhage; G97.82 Other postprocedural complications and disorders of nervous system; G93.6 Cerebral edema; Y83.8 Other surgical procedures as the cause of abnormal reaction of the patient, or of later complication, without mention of misadventure at the time of the procedure; C79.31 Secondary malignant neoplasm of brain; E87.1 Hypo-osmolality and hyponatremia; E87.2 Acidosis; R73.09 Other abnormal glucose; R00.0 Tachycardia, unspecified; D72.829 Elevated white blood cell count, unspecified; T38.0X5A Adverse effect of glucocorticoids and synthetic analogues, initial encounter; E86.0 Dehydration; H53.40 Unspecified visual field defects; J32.9 Chronic sinusitis, unspecified; E66.9 Obesity, unspecified; Z68.33 Body mass index [BMI] 33.0-33.9, adult; Z85.118 Personal history of other malignant neoplasm of bronchus and lung; Z85.47 Personal history of malignant neoplasm of testis; Z87.442 Personal history of urinary calculi
CPT/HCPCS: 70450; 71045; 80048; 80048 91; 80053; 81003; 82550; 83605; 83690; 85025; 85027; 85379; 85610; 85730; 87040; 87493; 87641; 93005; 93970; 99281; 99285; J0696; J1100; J2543; J7030; J7050

== ENCOUNTER 2017-07-14 04:09 | Inpatient (IN) | payer OTHER ==
[~2017-07-14] VITALS: Ht 182.9 cm; Wt 106.9 kg
[~2017-07-14 04:09] MED LIST changes: +AUGMENTIN875 MG PO; +DECADRON4 M1 PO; +DECADRON6 MG PO
[2017-07-14 04:39] LABS: APPEARANCE CLEAR ((CLEAR)); BILIRUBIN NEGATIVE; BLOOD MODERATE; COLOR YELLOW ((YELLOW)); GLUCOSE (STRIP) >=500; KETONES 20; LEUKOCYTES NEGATIVE; NITRITE NEGATIVE; PROTEIN (STRIP) 100; SPECIFIC GRAVITY 1.044 (1.000-1.030); UROBILINOGEN 0.2 MG/DL (0.2-1.0)
[2017-07-14 04:42] LABS: BACTERIA RARE /HPF; EPITHELIAL CELLS RARE /HPF; MUCUS NONE SEEN /LPF; RED BLOOD CELLS 0-5 /HPF (0-5); UCUL ADDED? NO; WHITE BLOOD CELLS 0-5 /HPF (0-5)
[2017-07-14 04:44] LABS: ALBUMIN 3.6 g/dL (3.2-4.8)
[2017-07-14 04:45] LABS: CHLORIDE 98 mEq/L (99-109); POTASSIUM 4.3 mEq/L (3.7-5.4); SODIUM 135 mEq/L (136-147)
[2017-07-14 04:47] LABS: GLUCOSE 383 mg/dL (70-99); TOTAL PROTEIN 5.9 g/dL (6.4-8.3)
[2017-07-14 04:49] LABS: TOTAL BILIRUBIN 0.7 mg/dL (0.0-1.0)
[2017-07-14 04:50] LABS: ALKALINE PHOSPHATASE 96 IU/L (3-129)
[2017-07-14 04:51] LABS: CREATININE 0.7 mg/dL (0.6-1.3); GFR ESTIMATE (CALCULATED) > 59 mL/min/ (58.99-99999)
[2017-07-14 04:52] LABS: AST (GOT) 13 IU/L (2-34); UREA NITROGEN (BUN) 23 mg/dL (9-23)
[2017-07-14 04:53] LABS: HEMATOCRIT 31.3 % (38.0-50.0); HEMOGLOBIN 11.6 G/DL (12.5-16.6); MCH 32.4 PG (29.0-34.0); MCHC 37.1 G/DL (30.0-36.0); MCV 87.4 FL (86-99); NRBC (%) 1.5 /100 WBC (0-0); RBC DIS.WIDTH-CV 13.1 % (11.8-14.6); RBC DIS.WIDTH-SD 40.9 % (39-53); RED BLOOD COUNT 3.58 M/uL (4.00-5.50)
[2017-07-14 04:54] LABS: ALT (GPT) 67 IU/L (3-49)
[2017-07-14 05:10] LABS: MAGNESIUM 2.1 mg/dL (1.3-2.7)
[2017-07-14 05:17] LABS: LIPASE 312 U/L (1.0-51.0)
[2017-07-14 05:39] LABS: PLAT.SUFFICIENCY ADEQUATE
[2017-07-14 05:40] LABS: PLATELET COUNT UNABLE TO REPORT K/uL (156-360)
[2017-07-14 15:00] VITALS: BP 128/82
[2017-07-14] MEDS ORDERED: TRESIBA FL100 UNIT/1 SQ (16:06)
[2017-07-14] MEDS ORDERED: DEXAMETHASONE4 MG PO (16:11)
[2017-07-14 16:35] LABS: HEMATOCRIT 28.4 % (38.0-50.0); HEMOGLOBIN 10.1 G/DL (12.5-16.6); MCV 88.8 FL (86-99)
[2017-07-14 19:35] VITALS: BP 128/89
[2017-07-14 22:00] LABS: HEMATOCRIT 26.6 % (38.0-50.0); HEMOGLOBIN 9.7 G/DL (12.5-16.6)
[2017-07-15 00:41] VITALS: BP 129/87
[2017-07-15 04:55] VITALS: BP 135/91
[2017-07-15 05:03] LABS: ALBUMIN 2.9 g/dL (3.2-4.8)
[2017-07-15 05:04] LABS: CHLORIDE 101 mEq/L (99-109); POTASSIUM 3.5 mEq/L (3.7-5.4); SODIUM 137 mEq/L (136-147)
[2017-07-15 05:05] LABS: HEMATOCRIT 25.7 % (38.0-50.0); HEMOGLOBIN 9.3 G/DL (12.5-16.6); MCH 32.4 PG (29.0-34.0); MCHC 36.2 G/DL (30.0-36.0); MCV 89.5 FL (86-99); NRBC (%) 2.2 /100 WBC (0-0); RBC DIS.WIDTH-CV 13.2 % (11.8-14.6); RBC DIS.WIDTH-SD 42.5 % (39-53); RED BLOOD COUNT 2.87 M/uL (4.00-5.50); WHITE BLOOD COUNT 3.7 K/uL (4.1-10.2)
[2017-07-15 05:06] LABS: GLUCOSE 241 mg/dL (70-99)
[2017-07-15 05:08] LABS: TOTAL BILIRUBIN 0.6 mg/dL (0.0-1.0)
[2017-07-15 05:11] LABS: AST (GOT) 11 IU/L (2-34); UREA NITROGEN (BUN) 20 mg/dL (9-23)
[2017-07-15 05:12] LABS: ALT (GPT) 50 IU/L (3-49)
[2017-07-15 05:13] LABS: ALKALINE PHOSPHATASE 64 IU/L (3-129); TOTAL PROTEIN 4.5 g/dL (6.4-8.3)
[2017-07-15 05:40] LABS: CREATININE 0.5 mg/dL (0.6-1.3); GFR ESTIMATE (CALCULATED) > 59 mL/min/ (58.99-99999)
[2017-07-15 05:43] LABS: ABS NEUTROPHIL COUNT 3.3; ATYPICAL LYMPHOCYTE 0.9 %; BAND NEUTROPHILS 14.4 % (0-8.0); EOSINOPHIL ABS CT 0; HYPOCHROMASIA 1+; IMM.PLATELET FRACTION 1.5 (1-7); LYMPHOCYTES 4.5 % (15.0-45.0); MONOCYTES 2.7 % (0-9.0); MYELOCYTES 1.8 %; NUCLEATED RBC'S 1.8; PLAT.SUFFICIENCY VERY DECREASED; SEG.NEUTROPHILS 75.7 % (46.0-76.0)
[2017-07-15 05:49] LABS: PLATELET COUNT 49 K/uL (156-360)
[2017-07-15 08:23] VITALS: BP 124/96
[2017-07-15 13:44] VITALS: BP 137/97
[2017-07-15 14:45] LABS: HEMATOCRIT 25.9 % (38.0-50.0); HEMOGLOBIN 9.1 G/DL (12.5-16.6)
[2017-07-15 18:23] VITALS: BP 119/81
[2017-07-15 18:26] LABS: INTER. NORMALIZED RATIO 1.1
[2017-07-15 18:27] LABS: PTT 21.1 SEC (25-37)
[2017-07-15 20:59] VITALS: BP 131/86
[2017-07-16] VITALS (7 sets, daily range): BP systolic 124–147; BP diastolic 80–90
[2017-07-16 00:44] LABS: HCG Total (Tumor Marker)+ <2 mIU/mL (<5)
[2017-07-16 07:23] LABS: HEMATOCRIT 26.3 % (38.0-50.0); HEMOGLOBIN 9.3 G/DL (12.5-16.6); MCV 88.9 FL (86-99)
[2017-07-16 07:24] LABS: HEMATOCRIT 26.1 % (38.0-50.0); HEMOGLOBIN 9.1 G/DL (12.5-16.6); MCH 31.2 PG (29.0-34.0); MCHC 34.9 G/DL (30.0-36.0); MCV 89.4 FL (86-99); NRBC (%) 2.7 /100 WBC (0-0); RBC DIS.WIDTH-CV 13.2 % (11.8-14.6); RBC DIS.WIDTH-SD 42.3 % (39-53); RED BLOOD COUNT 2.92 M/uL (4.00-5.50); WHITE BLOOD COUNT 3.7 K/uL (4.1-10.2)
[2017-07-16 07:51] LABS: CHLORIDE 96 MEQ/L (99-109); CREATININE 0.4 MG/DL (0.6-1.3); GFR ESTIMATE (CALCULATED) > 59 mL/min/ (58.99-99999); GLUCOSE 239 mg/dL (70-99); POTASSIUM 3.7 MEQ/L (3.7-5.4); SODIUM 134 MEQ/L (136-147); UREA NITROGEN (BUN) 14 mg/dL (9-23)
[2017-07-16 07:53] LABS: IMM.PLATELET FRACTION 1.6 (1-7); PLATELET COUNT 49 K/uL (156-360)
[2017-07-16 07:54] LABS: ANISOCYTOSIS 1+; MICROCYTOSIS 1+; OVALOCYTES 1+; PLAT.SUFFICIENCY DECREASED; TEAR DROP CELLS 1+
[2017-07-16 08:58] LABS: ABS NEUTROPHIL COUNT 3.4; BAND NEUTROPHILS 16.7 % (0-8.0); EOSINOPHIL ABS CT 0; LYMPHOCYTES 3.5 % (15.0-45.0); METAMYELOCYTES 1.7 %; MONOCYTES 0.9 % (0-9.0); MYELOCYTES 0.9 %; NUCLEATED RBC'S 0.9; SEG.NEUTROPHILS 76.3 % (46.0-76.0)
[2017-07-16 10:50] LABS: HEMOGLOBIN A1c (GLYCOHEMOGLOB) 9.1 % (Below 5.7)
[2017-07-17 02:46] LABS: Specimen Type Urine (())
[2017-07-17 04:06] VITALS: BP 136/87
[2017-07-17 06:23] LABS: HEMATOCRIT 26.5 % (38.0-50.0); HEMOGLOBIN 9.6 G/DL (12.5-16.6); MCH 32.3 PG (29.0-34.0); MCHC 36.2 G/DL (30.0-36.0); MCV 89.2 FL (86-99); NRBC (%) 3.5 /100 WBC (0-0); PLATELET COUNT 58 K/uL (156-360); RBC DIS.WIDTH-CV 13.3 % (11.8-14.6); RBC DIS.WIDTH-SD 42.5 % (39-53); RED BLOOD COUNT 2.97 M/uL (4.00-5.50); WHITE BLOOD COUNT 3.7 K/uL (4.1-10.2)
[2017-07-17 06:33] LABS: CHLORIDE 95 MEQ/L (99-109); CREATININE 0.5 MG/DL (0.6-1.3); GFR ESTIMATE (CALCULATED) > 59 mL/min/ (58.99-99999); GLUCOSE 299 mg/dL (70-99); POTASSIUM 4.1 MEQ/L (3.7-5.4); SODIUM 132 MEQ/L (136-147); UREA NITROGEN (BUN) 19 mg/dL (9-23)
[2017-07-17 08:32] VITALS: BP 131/81
[2017-07-17 08:32] LABS: ABS NEUTROPHIL COUNT 3.5; BAND NEUTROPHILS 13.9 % (0-8.0); BASOPHILS 0.9 %; EOSINOPHIL ABS CT 0; LYMPHOCYTES 0.9 % (15.0-45.0); METAMYELOCYTES 2.6 %; MONOCYTES 1.7 % (0-9.0); NUCLEATED RBC'S 3.5; PLAT.SUFFICIENCY DECREASED; SMUDGE CELLS 6.1
[2017-07-17 11:33] VITALS: BP 124/85
[2017-07-18 02:08] LABS: QGTB-NIL 0.41 IU/mL (()); QUANTIFERON TB GOLD INDETERMINATE (Negative); TB AG-NIL <0.00 IU/mL (())
== END 2017-07-17 12:20 | disposition home or self-care (01) | DRG 867 ==
LOC: EME 04:09 → EDOF 08:21 → 4EAST 08:21 → ENRESERV 08:30 → EDOF 09:00 → ENRESERV 09:49 → 4EAST 11:49 → ENPENDDIS 07-17 → 4EAST 07-17 12:20
PROVIDERS: Internal Medicine; Internal Medicine Gastroenterology; Internal Medicine Hematology & Oncology
PROC: 0BBF3ZX Excision of Right Lower Lung Lobe, Percutaneous Approach, Diagnostic (ICD-10-PCS; principal; 2017-07-16)
DX: B44.1 Other pulmonary aspergillosis (principal); K85.90 Acute pancreatitis without necrosis or infection, unspecified; D64.9 Anemia, unspecified; D69.6 Thrombocytopenia, unspecified; C79.31 Secondary malignant neoplasm of brain; C78.00 Secondary malignant neoplasm of unspecified lung; G72.0 Drug-induced myopathy; E09.65 Drug or chemical induced diabetes mellitus with hyperglycemia; T38.0X5A Adverse effect of glucocorticoids and synthetic analogues, initial encounter; R91.1 Solitary pulmonary nodule; R19.7 Diarrhea, unspecified; K44.9 Diaphragmatic hernia without obstruction or gangrene; I10 Essential (primary) hypertension; E66.9 Obesity, unspecified; Z68.31 Body mass index [BMI] 31.0-31.9, adult; Z85.29 Personal history of malignant neoplasm of other respiratory and intrathoracic organs; Z85.47 Personal history of malignant neoplasm of testis; Z92.21 Personal history of antineoplastic chemotherapy; Z87.442 Personal history of urinary calculi
CPT/HCPCS: 71250; 74177; 76705; 77012; 80048; 80053; 81003; 82105 90; 82948; 83036; 83615; 83690; 83735; 84702 90; 85014; 85018; 85025; 85025 91; 85027; 85610; 85730; 86480 90; 87040; 87070; 87075; 87102; 87107; 87116; 87205; 87206; 87385 90; 87449; 87493; 87506; 88305; 88312; 99281; 99285; A6214; J1815; J1956; J2543; J3010; J3370; J3480; J7030; J7040; J7050; J8540

== ENCOUNTER 2017-08-07 17:10 | Inpatient (IN) | payer OTHER ==
[~2017-08-07] VITALS: Ht 182.9 cm; Wt 133.5 kg
[~2017-08-07 17:10] MED LIST changes: +DEXAMETHASONE4 MG PO; +TRESIBA FL100 UNIT/1 SQ
[2017-08-07 17:53] LABS: BASOPHIL (%) 0.2 % (0-1); EOSINOPHIL (%) 0 % (0-5); HEMATOCRIT 24.1 % (38.0-50.0); HEMOGLOBIN 7.8 G/DL (12.5-16.6); IMMATURE GRANULOCYTE (%) 2.6 % (0.0-0.7); LYMPHOCYTE (%) 12.2 % (15-42); LYMPHOCYTE COUNT 0.6 K/uL (1.0-2.8); MCHC 32.4 G/DL (30.0-36.0); MCV 98.8 FL (86-99); MONOCYTE (%) 4.1 % (3-12); MONOCYTE COUNT 0.2 K/uL (0-0.8); NEUTROPHIL (%) 80.9 % (45-76); NEUTROPHIL COUNT 4.1 K/uL (1.8-6.4); NRBC (%) 1.6 /100 WBC (0-0); PLATELET COUNT 96 K/uL (156-360); RBC DIS.WIDTH-SD 65.9 % (39-53); RED BLOOD COUNT 2.44 M/uL (4.00-5.50); WHITE BLOOD COUNT 5.1 K/uL (4.1-10.2)
[2017-08-07 18:22] LABS: CHLORIDE 101 MEQ/L (99-109); CREATININE 0.4 MG/DL (0.6-1.3); GFR ESTIMATE (CALCULATED) > 59 mL/min/ (58.99-99999); GLUCOSE 124 mg/dL (70-99); POTASSIUM 3.2 MEQ/L (3.7-5.4); SODIUM 140 MEQ/L (136-147); UREA NITROGEN (BUN) 12 mg/dL (9-23)
[2017-08-07 18:52] LABS: INTER. NORMALIZED RATIO 1.6
[2017-08-07 18:55] LABS: PTT 27.5 SEC (25-37)
[2017-08-07 19:32] LABS: ALBUMIN 2.9 G/DL (3.2-4.8); ALKALINE PHOSPHATASE 91 IU/L (3-129); ALT (GPT) 33 IU/L (3-49); AST (GOT) 17 IU/L (2-34); TOTAL BILIRUBIN 0.3 MG/DL (0.0-1.0); TOTAL PROTEIN 6.1 G/DL (6.4-8.3)
[2017-08-07 20:02] LABS: TROP-I INTERPRETATION NEGATIVE; TROPONIN-I 0.02 ng/mL (0.0-0.30)
[2017-08-07] MEDS ORDERED: LEVAQUIN500 MG PO (21:21)
[2017-08-07] MEDS ORDERED: VFEND200 MG PO (21:21)
[2017-08-07] MEDS ORDERED: TYLENOL EXTRA500 MG PO (21:21)
[2017-08-07 22:53] VITALS: BP 115/75
[2017-08-07 23:12] VITALS: BP 118/86
[2017-08-07 23:45] LABS: APPEARANCE CLEAR ((CLEAR)); BILIRUBIN NEGATIVE; BLOOD NEGATIVE; COLOR STRAW ((YELLOW)); GLUCOSE (STRIP) 50; KETONES NEGATIVE; LEUKOCYTES NEGATIVE; NITRITE NEGATIVE; PROTEIN (STRIP) NEGATIVE; SPECIFIC GRAVITY 1.034 (1.000-1.030); UCUL ADDED? NO; UROBILINOGEN 0.2 MG/DL (0.2-1.0)
[2017-08-08] VITALS (13 sets, daily range): BP systolic 91–124; BP diastolic 56–76
[2017-08-08 07:36] LABS: CHLORIDE 106 MEQ/L (99-109); CREATININE 0.3 MG/DL (0.6-1.3); GFR ESTIMATE (CALCULATED) > 59 mL/min/ (58.99-99999); GLUCOSE 95 mg/dL (70-99); POTASSIUM 2.9 MEQ/L (3.7-5.4); SODIUM 143 MEQ/L (136-147); UREA NITROGEN (BUN) 8 mg/dL (9-23)
[2017-08-08 08:12] LABS: HEMATOCRIT 26.5 % (38.0-50.0); HEMOGLOBIN 8.8 G/DL (12.5-16.6); MCH 31.2 PG (29.0-34.0); MCHC 33.2 G/DL (30.0-36.0); NRBC (%) 1.7 /100 WBC (0-0); PLATELET COUNT 82 K/uL (156-360); RBC DIS.WIDTH-CV 19.7 % (11.8-14.6); RBC DIS.WIDTH-SD 64.1 % (39-53); RED BLOOD COUNT 2.82 M/uL (4.00-5.50); WHITE BLOOD COUNT 4.6 K/uL (4.1-10.2)
[2017-08-08 09:16] LABS: MAGNESIUM 1.2 mg/dl (1.3-2.7)
[2017-08-09 00:14] LABS: POTASSIUM 3.1 MEQ/L (3.7-5.4)
[2017-08-09 01:07] LABS: TROP-I INTERPRETATION NEGATIVE; TROPONIN-I < 0.01 ng/mL (0.0-0.30)
[2017-08-09 01:17] LABS: MAGNESIUM 1.2 mg/dl (1.3-2.7)
[2017-08-09 03:02] VITALS: BP 118/70
[2017-08-09 03:41] LABS: MAGNESIUM 1.6 mg/dl (1.3-2.7)
[2017-08-09 05:23] LABS: HEMOGLOBIN 8.6 G/DL (12.5-16.6); MCH 31.5 PG (29.0-34.0); MCHC 33.1 G/DL (30.0-36.0); MCV 95.2 FL (86-99); NRBC (%) 1.3 /100 WBC (0-0); PLATELET COUNT 80 K/uL (156-360); RBC DIS.WIDTH-CV 19.6 % (11.8-14.6); RBC DIS.WIDTH-SD 65.6 % (39-53); RED BLOOD COUNT 2.73 M/uL (4.00-5.50); WHITE BLOOD COUNT 4.7 K/uL (4.1-10.2)
[2017-08-09 06:07] LABS: CHLORIDE 105 MEQ/L (99-109); CREATININE 0.4 MG/DL (0.6-1.3); GFR ESTIMATE (CALCULATED) > 59 mL/min/ (58.99-99999); GLUCOSE 134 mg/dL (70-99); LACTATE DEHYDROGENASE 239 IU/L (20-246); MAGNESIUM 1.6 mg/dl (1.3-2.7); SODIUM 143 MEQ/L (136-147); UREA NITROGEN (BUN) 6 mg/dL (9-23)
[2017-08-09 08:34] VITALS: BP 109/72
[2017-08-09 13:10] VITALS: BP 116/72
[2017-08-09 16:00] VITALS: BP 105/68
[2017-08-09 16:27] LABS: CHLORIDE 104 MEQ/L (99-109); CREATININE 0.6 MG/DL (0.6-1.3); GFR ESTIMATE (CALCULATED) > 59 mL/min/ (58.99-99999); GLUCOSE 196 mg/dL (70-99); POTASSIUM 3.4 MEQ/L (3.7-5.4); SODIUM 140 MEQ/L (136-147); UREA NITROGEN (BUN) 9 mg/dL (9-23)
[2017-08-09 19:00] VITALS: BP 105/59
[2017-08-10] VITALS (7 sets, daily range): BP systolic 107–155; BP diastolic 66–76
[2017-08-10 06:36] LABS: HEMATOCRIT 27.2 % (38.0-50.0); HEMOGLOBIN 8.6 G/DL (12.5-16.6); MCH 30.6 PG (29.0-34.0); MCHC 31.6 G/DL (30.0-36.0); MCV 96.8 FL (86-99); NRBC (%) 0.9 /100 WBC (0-0); PLATELET COUNT 80 K/uL (156-360); RBC DIS.WIDTH-CV 19.1 % (11.8-14.6); RBC DIS.WIDTH-SD 65.1 % (39-53); RED BLOOD COUNT 2.81 M/uL (4.00-5.50); WHITE BLOOD COUNT 4.4 K/uL (4.1-10.2)
[2017-08-10 07:03] LABS: CHLORIDE 104 MEQ/L (99-109); CREATININE 0.4 MG/DL (0.6-1.3); GFR ESTIMATE (CALCULATED) > 59 mL/min/ (58.99-99999); POTASSIUM 3.5 MEQ/L (3.7-5.4); SODIUM 143 MEQ/L (136-147); UREA NITROGEN (BUN) 8 mg/dL (9-23)
[2017-08-10 07:14] LABS: GLUCOSE 106 mg/dL (70-99)
[2017-08-10 22:11] LABS: HCG Total (Tumor Marker)+ <2 mIU/mL (<5)
[2017-08-11 01:18] VITALS: BP 105/61
[2017-08-11 04:19] VITALS: BP 109/68
[2017-08-11 05:19] LABS: HEMATOCRIT 26.6 % (38.0-50.0); HEMOGLOBIN 8.4 G/DL (12.5-16.6); MCHC 31.6 G/DL (30.0-36.0); MCV 98.2 FL (86-99); NRBC (%) 0.4 /100 WBC (0-0); PLATELET COUNT 88 K/uL (156-360); RBC DIS.WIDTH-CV 19.3 % (11.8-14.6); RBC DIS.WIDTH-SD 66.6 % (39-53); RED BLOOD COUNT 2.71 M/uL (4.00-5.50); WHITE BLOOD COUNT 4.9 K/uL (4.1-10.2)
[2017-08-11 05:49] LABS: CHLORIDE 105 MEQ/L (99-109); CREATININE 0.5 MG/DL (0.6-1.3); GFR ESTIMATE (CALCULATED) > 59 mL/min/ (58.99-99999); GLUCOSE 106 mg/dL (70-99); MAGNESIUM 1.9 mg/dl (1.3-2.7); POTASSIUM 3.8 MEQ/L (3.7-5.4); SODIUM 143 MEQ/L (136-147); UREA NITROGEN (BUN) 10 mg/dL (9-23)
[2017-08-11 09:31] VITALS: BP 103/58
[2017-08-11 11:53] VITALS: BP 104/66
[2017-08-11 16:03] VITALS: BP 103/63
[2017-08-11 19:15] VITALS: BP 108/66
[2017-08-12] VITALS (7 sets, daily range): BP systolic 90–128; BP diastolic 55–72
[2017-08-13 05:57] LABS: HEMATOCRIT 26.7 % (38.0-50.0); HEMOGLOBIN 8.5 G/DL (12.5-16.6); MCH 31.3 PG (29.0-34.0); MCHC 31.8 G/DL (30.0-36.0); MCV 98.2 FL (86-99); NRBC (%) 0.9 /100 WBC (0-0); RBC DIS.WIDTH-CV 18.9 % (11.8-14.6); RBC DIS.WIDTH-SD 66.2 % (39-53); RED BLOOD COUNT 2.72 M/uL (4.00-5.50); WHITE BLOOD COUNT 5.8 K/uL (4.1-10.2)
[2017-08-13 05:59] LABS: PLATELET COUNT 138 K/uL (156-360)
[2017-08-13 06:27] LABS: CHLORIDE 102 MEQ/L (99-109); CREATININE 0.5 MG/DL (0.6-1.3); GFR ESTIMATE (CALCULATED) > 59 mL/min/ (58.99-99999); GLUCOSE 81 mg/dL (70-99); MAGNESIUM 1.8 mg/dl (1.3-2.7); SODIUM 137 MEQ/L (136-147); UREA NITROGEN (BUN) 9 mg/dL (9-23)
[2017-08-13 07:54] LABS: THYROTROPIN (TSH) 0.91 MIU/L (0.4-5.5)
[2017-08-13 08:09] VITALS: BP 118/72
[2017-08-13] MEDS ORDERED: VFEND200 MG PO (13:28)
[2017-08-13] MEDS ORDERED: BACTRIM,SEPT1 TABLET PO (13:28)
[2017-08-13] MEDS ORDERED: PRIMAXIN 500 M500 MG IV (13:30)
== END 2017-08-13 14:55 | disposition home health service (06) | DRG 867 ==
LOC: EME 17:10 → 4EAST 21:21 → EDOF 21:21 → ENRESERV 21:22 → 4EAST 23:43 → CANRESERV 08-12 10:55 → ENRESERV 08-12 10:55 → 5EAST 08-12 14:02
PROVIDERS: Family Medicine; Hospitalist; Internal Medicine; Internal Medicine Cardiovascular Disease; Physician Assistant; Student in an Organized Health Care Education/Training Program
PROC: 30233N1 Transfusion of Nonautologous Red Blood Cells into Peripheral Vein, Percutaneous Approach (ICD-10-PCS; principal; 2017-08-07)
PROC: 02H733Z Insertion of Infusion Device into Left Atrium, Percutaneous Approach (ICD-10-PCS; 2017-08-09)
PROC: 0BBC3ZX Excision of Right Upper Lung Lobe, Percutaneous Approach, Diagnostic (ICD-10-PCS; 2017-08-09)
DX: B44.1 Other pulmonary aspergillosis (principal); J96.01 Acute respiratory failure with hypoxia; A43.0 Pulmonary nocardiosis; D62 Acute posthemorrhagic anemia; D61.810 Antineoplastic chemotherapy induced pancytopenia; T45.1X5A Adverse effect of antineoplastic and immunosuppressive drugs, initial encounter; C79.31 Secondary malignant neoplasm of brain; K85.90 Acute pancreatitis without necrosis or infection, unspecified; E83.42 Hypomagnesemia; E83.51 Hypocalcemia; D68.9 Coagulation defect, unspecified; K64.9 Unspecified hemorrhoids; R91.1 Solitary pulmonary nodule; E66.9 Obesity, unspecified; Z68.32 Body mass index [BMI] 32.0-32.9, adult; E87.6 Hypokalemia; R94.31 Abnormal electrocardiogram [ECG] [EKG]; I87.8 Other specified disorders of veins; Z85.47 Personal history of malignant neoplasm of testis; Z85.118 Personal history of other malignant neoplasm of bronchus and lung; Z79.4 Long term (current) use of insulin; Z79.2 Long term (current) use of antibiotics; Z87.01 Personal history of pneumonia (recurrent); Z87.442 Personal history of urinary calculi; Z92.21 Personal history of antineoplastic chemotherapy; Z80.9 Family history of malignant neoplasm, unspecified
CPT/HCPCS: 70553; 71045; 71046; 71275; 74177; 76937; 77012; 80048; 80048 91; 80076; 80202; 81003; 82105 90; 83605; 83615; 83735; 84132 91; 84443; 84484; 84702 90; 85025; 85027; 85610; 85730; 86850; 86900; 86901; 86920; 87040; 87102; 87205; 87449; 88305; 88312; 88341 TC; 88342 TC; 93005; 94640; 94640 76; 94799; 99202; 99281; 99285; C1751; C9113; J0289; J0610; J0692; J0743; J2405; J2997; J3370; J3475; J3480; J7040; J7050; J7060; P9016

== ENCOUNTER → 2017-10-06 | Outpatient (CLI) | payer OTHER ==
[~2017-10-06] MED LIST changes: +ALEVE220 M2 PO; +ALLEGRA60 MG PO; +BACTRIM,SEPT1 TABLET PO; +LEVAQUIN500 MG PO; +PRIMAXIN 500 M500 MG IV; +TYLENOL EXTRA500 MG PO; +VFEND200 MG PO
[2017-10-06 09:23] LABS: INTER. NORMALIZED RATIO 1.1
[2017-10-06 09:25] LABS: PTT 31.6 SEC (25-37)
== END | disposition home or self-care (01) ==
LOC: OPR 08:25 → EDSTATUS 09:00
PROVIDERS: Internal Medicine Hematology & Oncology
DX: C34.12 Malignant neoplasm of upper lobe, left bronchus or lung (principal); C62.90 Malignant neoplasm of unspecified testis, unspecified whether descended or undescended; C79.31 Secondary malignant neoplasm of brain
CPT/HCPCS: 71045; 77012; 82948; 85610; 85730; 87070; 87075; 87102; 87205; 88305; 88312; 88341 TC; 88342 TC; J3010

== ENCOUNTER 2017-11-09 03:52 | Emergency (ER) | payer OTHER ==
[~2017-11-09] VITALS: Ht 182.9 cm; Wt 112.6 kg
[2017-11-09 04:43] LABS: HEMATOCRIT 39.5 % (38.0-50.0); HEMOGLOBIN 13.4 G/DL (12.5-16.6); MCH 29.1 PG (29.0-34.0); MCHC 33.9 G/DL (30.0-36.0); MCV 85.7 FL (86-99); PLATELET COUNT 234 K/uL (156-360); RBC DIS.WIDTH-CV 13.4 % (11.8-14.6); RBC DIS.WIDTH-SD 42.1 % (39-53); RED BLOOD COUNT 4.61 M/uL (4.00-5.50); WHITE BLOOD COUNT 9.1 K/uL (4.1-10.2)
[2017-11-09 04:52] LABS: ALBUMIN 4.2 g/dL (3.2-4.8); CHLORIDE 103 mEq/L (99-109); POTASSIUM 4.1 mEq/L (3.7-5.4); SODIUM 138 mEq/L (136-147)
[2017-11-09 04:54] LABS: GLUCOSE 101 mg/dL (70-99)
[2017-11-09 04:56] LABS: TOTAL BILIRUBIN 0.3 mg/dL (0.0-1.0)
[2017-11-09 04:58] LABS: ALKALINE PHOSPHATASE 73 IU/L (3-129); CREATININE 0.9 mg/dL (0.6-1.3); GFR ESTIMATE (CALCULATED) > 59 mL/min/ (58.99-99999)
[2017-11-09 04:59] LABS: AST (GOT) 17 IU/L (2-34); UREA NITROGEN (BUN) 12 mg/dL (9-23)
[2017-11-09 05:01] LABS: ALT (GPT) 13 IU/L (3-49)
[2017-11-09 05:05] LABS: TROP-I INTERPRETATION NEGATIVE; TROPONIN-I < 0.01 ng/mL (0.0-0.30)
[2017-11-09 06:59] VITALS: BP 127/85
== END 2017-11-09 07:02 | disposition home or self-care (01) ==
LOC: EME 03:52
PROVIDERS: Emergency Medicine
DX: J90 Pleural effusion, not elsewhere classified (principal); R91.8 Other nonspecific abnormal finding of lung field; I45.10 Unspecified right bundle-branch block; K21.9 Gastro-esophageal reflux disease without esophagitis; I10 Essential (primary) hypertension; Z85.118 Personal history of other malignant neoplasm of bronchus and lung; Z87.442 Personal history of urinary calculi
CPT/HCPCS: 71046; 71275; 80053; 84484; 85027; 85379; 93005; 99281; 99284; J7030

== ENCOUNTER 2017-11-22 07:59 | Inpatient (IN) | payer OTHER ==
[~2017-11-22] VITALS: Ht 182.9 cm; Wt 109.4 kg
[2017-11-22 08:34] VITALS: BP 134/87
[2017-11-22 09:38] LABS: HEMATOCRIT 39.1 % (38.0-50.0); HEMOGLOBIN 12.8 G/DL (12.5-16.6); MCH 27.9 PG (29.0-34.0); MCHC 32.7 G/DL (30.0-36.0); MCV 85.2 FL (86-99); PLATELET COUNT 280 K/uL (156-360); RBC DIS.WIDTH-SD 43.8 % (39-53); RED BLOOD COUNT 4.59 M/uL (4.00-5.50); WHITE BLOOD COUNT 10.3 K/uL (4.1-10.2)
[2017-11-22 10:03] LABS: CHLORIDE 96 MEQ/L (99-109); CREATININE 0.9 MG/DL (0.6-1.3); GFR ESTIMATE (CALCULATED) > 59 mL/min/ (58.99-99999); GLUCOSE 138 mg/dL (70-99); MAGNESIUM 2.1 mg/dl (1.3-2.7); POTASSIUM 4.4 MEQ/L (3.7-5.4); SODIUM 136 MEQ/L (136-147); UREA NITROGEN (BUN) 11 mg/dL (9-23)
[2017-11-22] MEDS ORDERED: BACTRIM,SEPT1 TABLET PO (10:09)
[2017-11-22] MEDS ORDERED: ROXICODONE5 MG PO (10:12)
[2017-11-22 15:47] VITALS: BP 117/71
[2017-11-23 05:17] LABS: HEMATOCRIT 36.2 % (38.0-50.0); HEMOGLOBIN 11.9 G/DL (12.5-16.6); MCH 27.7 PG (29.0-34.0); MCHC 32.9 G/DL (30.0-36.0); MCV 84.4 FL (86-99); PLATELET COUNT 286 K/uL (156-360); RBC DIS.WIDTH-CV 13.6 % (11.8-14.6); RBC DIS.WIDTH-SD 41.8 % (39-53); RED BLOOD COUNT 4.29 M/uL (4.00-5.50); WHITE BLOOD COUNT 9.9 K/uL (4.1-10.2)
[2017-11-23 05:38] LABS: CHLORIDE 100 MEQ/L (99-109); CREATININE 0.6 MG/DL (0.6-1.3); GFR ESTIMATE (CALCULATED) > 59 mL/min/ (58.99-99999); GLUCOSE 141 mg/dL (70-99); POTASSIUM 4.6 MEQ/L (3.7-5.4); SODIUM 137 MEQ/L (136-147); UREA NITROGEN (BUN) 9 mg/dL (9-23)
[2017-11-23 07:26] VITALS: BP 129/80
[2017-11-23 16:06] VITALS: BP 130/72
[2017-11-24 00:30] VITALS: BP 139/76
[2017-11-24 06:56] LABS: BASOPHIL (%) 0 % (0-1); EOSINOPHIL (%) 0 % (0-5); HEMATOCRIT 33.1 % (38.0-50.0); HEMOGLOBIN 10.7 G/DL (12.5-16.6); IMMATURE GRANULOCYTE (%) 0.8 % (0.0-0.7); LYMPHOCYTE (%) 1.3 % (15-42); LYMPHOCYTE COUNT 0.2 K/uL (1.0-2.8); MCH 27.4 PG (29.0-34.0); MCHC 32.3 G/DL (30.0-36.0); MCV 84.9 FL (86-99); MONOCYTE (%) 1.9 % (3-12); MONOCYTE COUNT 0.3 K/uL (0-0.8); NEUTROPHIL COUNT 12.9 K/uL (1.8-6.4); PLATELET COUNT 251 K/uL (156-360); RBC DIS.WIDTH-CV 13.4 % (11.8-14.6); RBC DIS.WIDTH-SD 41.6 % (39-53); WHITE BLOOD COUNT 13.4 K/uL (4.1-10.2)
[2017-11-24 07:30] VITALS: BP 138/90
[2017-11-24 07:35] LABS: ALBUMIN 2.9 G/DL (3.2-4.8); ALKALINE PHOSPHATASE 64 IU/L (3-129); ALT (GPT) 39 IU/L (3-49); AST (GOT) 32 IU/L (2-34); CHLORIDE 107 MEQ/L (99-109); CREATININE 0.6 MG/DL (0.6-1.3); GFR ESTIMATE (CALCULATED) > 59 mL/min/ (58.99-99999); GLUCOSE 116 mg/dL (70-99); MAGNESIUM 2.4 mg/dl (1.3-2.7); POTASSIUM 4.2 MEQ/L (3.7-5.4); SODIUM 140 MEQ/L (136-147); TOTAL BILIRUBIN 0.3 MG/DL (0.0-1.0); TOTAL PROTEIN 5.3 G/DL (6.4-8.3); UREA NITROGEN (BUN) 8 mg/dL (9-23)
[2017-11-24 08:18] LABS: PHOSPHORUS 2.3 mg/dL (2.5-4.9); URIC ACID 2.2 mg/dL (3.1-9.2)
[2017-11-24 15:20] VITALS: BP 140/87
[2017-11-25 00:37] VITALS: BP 136/77
[2017-11-25 06:22] LABS: BASOPHIL (%) 0 % (0-1); EOSINOPHIL (%) 0 % (0-5); HEMATOCRIT 30.6 % (38.0-50.0); HEMOGLOBIN 10.2 G/DL (12.5-16.6); IMMATURE GRANULOCYTE (%) 0.9 % (0.0-0.7); LYMPHOCYTE (%) 2.3 % (15-42); LYMPHOCYTE COUNT 0.2 K/uL (1.0-2.8); MCH 27.9 PG (29.0-34.0); MCHC 33.3 G/DL (30.0-36.0); MCV 83.8 FL (86-99); MONOCYTE (%) 0.6 % (3-12); MONOCYTE COUNT 0.1 K/uL (0-0.8); NEUTROPHIL (%) 96.2 % (45-76); NEUTROPHIL COUNT 9.7 K/uL (1.8-6.4); PLATELET COUNT 215 K/uL (156-360); RBC DIS.WIDTH-CV 13.3 % (11.8-14.6); RBC DIS.WIDTH-SD 40.7 % (39-53); RED BLOOD COUNT 3.65 M/uL (4.00-5.50); WHITE BLOOD COUNT 10.1 K/uL (4.1-10.2)
[2017-11-25 06:40] LABS: CHLORIDE 106 MEQ/L (99-109); CREATININE 0.5 MG/DL (0.6-1.3); GFR ESTIMATE (CALCULATED) > 59 mL/min/ (58.99-99999); GLUCOSE 119 mg/dL (70-99); POTASSIUM 4.2 MEQ/L (3.7-5.4); SODIUM 138 MEQ/L (136-147); UREA NITROGEN (BUN) 8 mg/dL (9-23)
[2017-11-25 07:45] VITALS: BP 139/90
[2017-11-25 15:00] VITALS: BP 160/90
[2017-11-26 00:57] VITALS: BP 133/79
[2017-11-26 06:29] LABS: CHLORIDE 103 MEQ/L (99-109); CREATININE 0.6 MG/DL (0.6-1.3); GFR ESTIMATE (CALCULATED) > 59 mL/min/ (58.99-99999); GLUCOSE 108 mg/dL (70-99); POTASSIUM 4.5 MEQ/L (3.7-5.4); SODIUM 135 MEQ/L (136-147); UREA NITROGEN (BUN) 10 mg/dL (9-23)
[2017-11-26 07:15] VITALS: BP 136/88
[2017-11-26 15:48] VITALS: BP 137/87
== END 2017-11-26 22:55 | disposition home or self-care (01) | DRG 846 ==
LOC: 5EAST 07:59 → ENPENDDIS 11-26 18:00 → 5EAST 11-26 22:55
PROVIDERS: Hospitalist; Internal Medicine; Internal Medicine Hematology & Oncology
DX: Z51.11 Encounter for antineoplastic chemotherapy (principal); C62.90 Malignant neoplasm of unspecified testis, unspecified whether descended or undescended; C78.00 Secondary malignant neoplasm of unspecified lung; C79.31 Secondary malignant neoplasm of brain; G89.3 Neoplasm related pain (acute) (chronic); K59.00 Constipation, unspecified; E88.3 Tumor lysis syndrome; E87.70 Fluid overload, unspecified
CPT/HCPCS: 80048; 80053; 82105 90; 83615; 83735; 84100; 84550; 84702 90; 85025; 85027; C1753; C9463; J1100; J1200; J1650; J2405; J2765; J3475; J3480; J7030; J7040; J7050; J8540; J9060; J9208; J9209; J9267; S0028

== ENCOUNTER 2017-12-01 16:14 | Inpatient (IN) | payer OTHER ==
[~2017-12-01] VITALS: Ht 182.9 cm; Wt 106.2 kg
[~2017-12-01 16:14] MED LIST changes: +ROXICODONE5 MG PO
[2017-12-01 16:57] LABS: ALBUMIN 3.8 g/dL (3.2-4.8); HEMATOCRIT 36.2 % (38.0-50.0); MCH 27.3 PG (29.0-34.0); MCHC 34.5 G/DL (30.0-36.0); RBC DIS.WIDTH-CV 13.2 % (11.8-14.6)
[2017-12-01 16:58] LABS: CHLORIDE 95 mEq/L (99-109); POTASSIUM 3.8 mEq/L (3.7-5.4)
[2017-12-01 17:00] LABS: GLUCOSE 117 mg/dL (70-99); TOTAL PROTEIN 6.7 g/dL (6.4-8.3)
[2017-12-01 17:02] LABS: TOTAL BILIRUBIN 0.5 mg/dL (0.0-1.0)
[2017-12-01 17:03] LABS: ALKALINE PHOSPHATASE 76 IU/L (3-129); HEMOGLOBIN 12.5 G/DL (12.5-16.6); RED BLOOD COUNT 4.58 M/uL (4.00-5.50); WHITE BLOOD COUNT 0.4 K/uL (4.1-10.2)
[2017-12-01 17:04] LABS: CREATININE 0.8 mg/dL (0.6-1.3); GFR ESTIMATE (CALCULATED) > 59 mL/min/ (58.99-99999)
[2017-12-01 17:05] LABS: AST (GOT) 16 IU/L (2-34); UREA NITROGEN (BUN) 10 mg/dL (9-23)
[2017-12-01 17:07] LABS: ALT (GPT) 41 IU/L (3-49)
[2017-12-01 17:11] LABS: SODIUM 128 mEq/L (136-147)
[2017-12-01] MEDS ORDERED: VFEND200 MG PO (17:22)
[2017-12-01] MEDS ORDERED: HYDROMORPHONE HC2 MG PO (17:23)
[2017-12-01] MEDS ORDERED: VFEND50 MG PO (17:23)
[2017-12-01] MEDS ORDERED: METOCLOPRAMIDE10 MG PO (17:24)
[2017-12-01] MEDS ORDERED: ONDANSETRON HCL8 MG PO (17:24)
[2017-12-01 17:56] LABS: APPEARANCE CLEAR ((CLEAR)); BILIRUBIN NEGATIVE; BLOOD NEGATIVE; COLOR YELLOW ((YELLOW)); GLUCOSE (STRIP) NEGATIVE; KETONES NEGATIVE; LEUKOCYTES NEGATIVE; NITRITE NEGATIVE; PROTEIN (STRIP) 30; SPECIFIC GRAVITY 1.011 (1.000-1.030); UCUL ADDED? NO; UROBILINOGEN 0.2 MG/DL (0.2-1.0)
[2017-12-01 18:18] LABS: PLATELET COUNT 75 K/uL (156-360)
[2017-12-01 21:01] VITALS: BP 132/82
[2017-12-01 22:48] VITALS: BP 127/72
[2017-12-02 04:13] VITALS: BP 113/67
[2017-12-02 06:50] VITALS: BP 127/79
[2017-12-02 06:57] LABS: HEMATOCRIT 30.6 % (38.0-50.0); MCH 27.5 PG (29.0-34.0); MCHC 34.3 G/DL (30.0-36.0); MCV 80.1 FL (86-99); NRBC (%) 3.4 /100 WBC (0-0); RBC DIS.WIDTH-CV 13.3 % (11.8-14.6); RBC DIS.WIDTH-SD 38.9 % (39-53); RED BLOOD COUNT 3.82 M/uL (4.00-5.50)
[2017-12-02 06:59] LABS: HEMOGLOBIN 10.5 G/DL (12.5-16.6); WHITE BLOOD COUNT 0.6 K/uL (4.1-10.2)
[2017-12-02 07:06] LABS: CHLORIDE 98 MEQ/L (99-109); CREATININE 0.6 MG/DL (0.6-1.3); GFR ESTIMATE (CALCULATED) > 59 mL/min/ (58.99-99999); GLUCOSE 102 mg/dL (70-99); POTASSIUM 3.3 MEQ/L (3.7-5.4); SODIUM 132 MEQ/L (136-147); UREA NITROGEN (BUN) 8 mg/dL (9-23)
[2017-12-02 07:08] LABS: ABS NEUTROPHIL COUNT 0; ANISOCYTOSIS NONE SEEN; ATYPICAL LYMPHOCYTE 2.3 %; BASOPHILS 0.6 %; EOSINOPHIL ABS CT 0; EOSINOPHILS 2.9 % (0-5.0); LYMPHOCYTES 77.4 % (15.0-45.0); MONOCYTES 16.2 % (0-9.0); PLAT.SUFFICIENCY DECREASED; SEG.NEUTROPHILS 0.6 % (46.0-76.0)
[2017-12-02 07:40] LABS: PLAT.SUFFICIENCY DECREASED
[2017-12-02 07:52] LABS: PLATELET COUNT 45 K/uL (156-360)
[2017-12-02 11:00] VITALS: BP 121/83
[2017-12-02 15:00] VITALS: BP 111/77
[2017-12-02 18:37] VITALS: BP 134/85
[2017-12-02 23:05] VITALS: BP 121/85
[2017-12-03 03:05] VITALS: BP 120/74
[2017-12-03 06:55] VITALS: BP 122/83
[2017-12-03 09:10] LABS: HEMATOCRIT 31.9 % (38.0-50.0); HEMOGLOBIN 10.6 G/DL (12.5-16.6); MCHC 33.2 G/DL (30.0-36.0); MCV 81.4 FL (86-99); NRBC (%) 2.1 /100 WBC (0-0); RBC DIS.WIDTH-CV 13.6 % (11.8-14.6); RBC DIS.WIDTH-SD 39.8 % (39-53); RED BLOOD COUNT 3.92 M/uL (4.00-5.50)
[2017-12-03 09:11] LABS: WHITE BLOOD COUNT 0.9 K/uL (4.1-10.2)
[2017-12-03 09:30] LABS: CHLORIDE 98 MEQ/L (99-109); POTASSIUM 3.5 MEQ/L (3.7-5.4); SODIUM 136 MEQ/L (136-147)
[2017-12-03 09:35] LABS: CREATININE 0.7 MG/DL (0.6-1.3); GFR ESTIMATE (CALCULATED) > 59 mL/min/ (58.99-99999); GLUCOSE 117 mg/dL (70-99); UREA NITROGEN (BUN) 7 mg/dL (9-23)
[2017-12-03 09:40] LABS: ABS NEUTROPHIL COUNT 0.2; ANISOCYTOSIS 1+; ATYPICAL LYMPHOCYTE 0.9 %; BAND NEUTROPHILS 8.9 % (0-8.0); BASOPH.STIPPLING 1+; BASOPHILS 1.8 %; EOSINOPHIL ABS CT 0; EOSINOPHILS 0.9 % (0-5.0); HYPOCHROMASIA 2+; IMM.PLATELET FRACTION 2.8 (1-7); METAMYELOCYTES 0.9 %; MICROCYTOSIS 1+; NUCLEATED RBC'S 0.9; PLAT.SUFFICIENCY DECREASED; PLATELET COUNT 44 K/uL (156-360); POIKILOCYTOSIS 1+; POLYCHROMASIA 1+; SEG.NEUTROPHILS 8.9 % (46.0-76.0); TEAR DROP CELLS 1+
[2017-12-03 09:44] LABS: MONOCYTES 27.7 % (0-9.0)
[2017-12-03 11:00] VITALS: BP 128/90
[2017-12-03 15:00] VITALS: BP 125/87
[2017-12-03 19:00] VITALS: BP 127/88
[2017-12-04] VITALS (7 sets, daily range): BP systolic 118–131; BP diastolic 82–99
[2017-12-04 14:56] LABS: CHLORIDE 98 MEQ/L (99-109); CREATININE 0.8 MG/DL (0.6-1.3); GFR ESTIMATE (CALCULATED) > 59 mL/min/ (58.99-99999); GLUCOSE 96 mg/dL (70-99); POTASSIUM 3.3 MEQ/L (3.7-5.4); SODIUM 138 MEQ/L (136-147); UREA NITROGEN (BUN) 9 mg/dL (9-23)
[2017-12-04 14:59] LABS: VANCOMYCIN, TROUGH 15.2 MCG/ML (10-20)
[2017-12-04 15:08] LABS: HEMATOCRIT 33.3 % (38.0-50.0); HEMOGLOBIN 11.1 G/DL (12.5-16.6); MCH 27.1 PG (29.0-34.0); MCHC 33.3 G/DL (30.0-36.0); MCV 81.4 FL (86-99); PLAT.SUFFICIENCY DECREASED; PLATELET COUNT 51 K/uL (156-360); RBC DIS.WIDTH-CV 14.2 % (11.8-14.6); RBC DIS.WIDTH-SD 41.2 % (39-53); RED BLOOD COUNT 4.09 M/uL (4.00-5.50); WHITE BLOOD COUNT 4.9 K/uL (4.1-10.2)
[2017-12-04 15:48] LABS: MAGNESIUM 1.7 mg/dl (1.3-2.7)
[2017-12-05 03:56] VITALS: BP 124/86
[2017-12-05 06:45] VITALS: BP 117/81
[2017-12-05] MEDS ORDERED: CEPHALEXIN500 MG PO (09:29)
== END 2017-12-05 11:53 | disposition home or self-care (01) | DRG 809 ==
LOC: EME 16:14 → EDOF 18:50 → 5EAST 18:50 → ENRESERV 18:52 → 5EAST 20:56
PROVIDERS: Emergency Medicine; Hospitalist; Internal Medicine; Internal Medicine Hematology & Oncology; Nurse Practitioner Adult Health; Student in an Organized Health Care Education/Training Program
DX: D70.1 Agranulocytosis secondary to cancer chemotherapy (principal); R50.81 Fever presenting with conditions classified elsewhere; D61.810 Antineoplastic chemotherapy induced pancytopenia; B44.1 Other pulmonary aspergillosis; L03.114 Cellulitis of left upper limb; E87.6 Hypokalemia; E87.8 Other disorders of electrolyte and fluid balance, not elsewhere classified; K12.0 Recurrent oral aphthae; T45.1X5A Adverse effect of antineoplastic and immunosuppressive drugs, initial encounter; L27.1 Localized skin eruption due to drugs and medicaments taken internally; C62.90 Malignant neoplasm of unspecified testis, unspecified whether descended or undescended; C78.02 Secondary malignant neoplasm of left lung; C78.01 Secondary malignant neoplasm of right lung; I10 Essential (primary) hypertension; K21.9 Gastro-esophageal reflux disease without esophagitis; Z85.29 Personal history of malignant neoplasm of other respiratory and intrathoracic organs; Z85.841 Personal history of malignant neoplasm of brain; Z79.899 Other long term (current) drug therapy; Z80.0 Family history of malignant neoplasm of digestive organs; Z80.3 Family history of malignant neoplasm of breast
CPT/HCPCS: 71046; 80048; 80053; 80202; 81003; 83605; 83735; 85025; 85027; 87040; 93005; 96372; 99281; 99285; J0692; J1644; J2405; J2505; J3370; J7030